=== PATIENT | male | born 1945 | race American Indian/Alaskan Native ===

== ENCOUNTER 2018-03-24 15:17 | Inpatient (IN) | payer MEDICARE, MEDICAID ==
[2018-03-24 15:21] VITALS: BMI 20.3
[2018-03-24] MEDS ORDERED: Piperacillin/Tazobact 3.375 gm 100 ML IV STA (15:39)
[2018-03-24 16:16] LABS: BASO # 0.1 K/uL (0.0-0.2); BASO % 0.7 % (0.0-2.0); EOS # 0.7 K/uL (0.0-0.7); EOS % 6.9 % (0.0-4.0); HEMOGLOBIN 13.5 g/dL (12.0-18.0); LYMPH # 3.5 K/uL (1.0-4.3); LYMPH % 33.3 % (20.0-40.0); MEAN CELL VOLUME 85.6 fL (80.0-94.0); MEAN CORPUSCULAR HEMOGLOBIN 28.9 pg (27.0-31.0); MEAN CORPUSCULAR HGB CONC 33.7 g/dL (33.0-37.0); MEAN PLATELET VOLUME 8.3 fL (7.2-11.7); MONO # 0.5 K/uL (0.0-0.8); MONO % 4.6 % (0.0-10.0); NEUT # 5.8 K/uL (1.8-7.0); NEUT % 54.5 % (50.0-75.0); NRBC % 0.3 % (0.0-2.0); RBC 4.68 Mil/uL (4.40-5.90); RED CELL DISTRIBUTION WIDTH 14.1 % (11.5-14.5); WHITE BLOOD COUNT 10.6 K/uL (4.8-10.8)
[2018-03-24 17:24] LABS: URINE BACTERIA FEW (<OCC); URINE BILIRUBIN NEGATIVE (NEGATIVE); URINE BLOOD 3+ (NEGATIVE); URINE CLARITY Hazy (Clear); URINE COLOR Yellow (YELLOW); URINE GLUCOSE (UA) NORMAL (Normal); URINE LEUKOCYTE ESTERASE 1+ Leu/uL (Negative); URINE PROTEIN NEGATIVE (NEGATIVE); URINE UROBILINOGEN NORMAL mg/dL (0.2-1.0)
[2018-03-24 17:33] LABS: CALCIUM 9.2 mg/dl (8.6-10.4); GFR AFRICAN-AMERICAN > 60; GFR NON-AFRICAN AMERICAN > 60
[2018-03-24 17:43] LABS: ALB/GLOB RATIO 0.9 (1.0-2.1); ALBUMIN 3.8 g/dL (3.5-5.0); ALT/SGPT 70 U/L (21-72); AST/SGOT 87 U/L (17-59); BLOOD UREA NITROGEN 13 mg/dL (9-20)
--- NOTE | 2018-03-24 19:22 | C.PDOC ---
History Of Present Illness 72 yo male sent in from [facility] for ESBL UTI. Pt states " Im always hungry." Otherwise has no complaints. Denies dysuria, abdominal pain, n/v, fever , or back pain. Pt is poor historian. Time Seen by Provider: 03/24/18 15:29 Chief Complaint (Nursing): Abnormal Labs History Per: Patient Past Medical History Vital Signs: Last Vital Signs Temp 98.4 F 03/24/18 18:28 Pulse 67 03/24/18 18:28 Resp 20 03/24/18 18:28 BP 157/93 H 03/24/18 18:28 Pulse Ox 99 03/24/18 18:28 - Medical History PMH: Parkinson's Disease, Seizures, TIA Denies: Chronic Kidney Disease Family History: States: Unknown Family Hx - Social History Hx Alcohol Use: No Hx Substance Use: No - Immunization History Hx Influenza Vaccination: Yes (08/14/17) Hx Pneumococcal Vaccination: Yes (08/31/13) Review Of Systems Review Of Systems: ROS cannot be obtained secondary to pt's inabilty to answer questions. Physical Exam - Physical Exam Appears: Non-toxic, No Acute Distress Skin: Warm, Dry Head: Atraumatic, Normacephalic Nose: Normal Oral Mucosa: Moist Neck: Normal, Normal ROM, Supple Chest: Symmetrical Cardiovascular: Rhythm Regular Respiratory: Normal Breath Sounds Gastrointestinal/Abdominal: Normal Exam, Soft, No Tenderness Back: Normal Inspection Extremity: Other (left contracture) Neurological/Psych: Other (a &o x 1) ED Course And Treatment - Laboratory Results Result Diagrams: 03/24/18 16:11 03/24/18 16:37 O2 Sat by Pulse Oximetry: 99 Progress Note: Case discussed with Dr patterson, agreed upon plan and admission. Requests Madhav consult. Disposition - Disposition Disposition: HOSPITALIZED Disposition Time: 18:00 Condition: STABLE - Clinical Impression Clinical Impression: Urinary tract infection due to ESBL Klebsiella
[2018-03-24] MEDS ORDERED: Magnesium Hydroxide Susp 30 ml UD PO PRN (23:23)
[2018-03-24] MEDS ORDERED: Piperacillin/Tazobact 3.375 GM in Sodium Chloride 100 ML IVPB SCH (23:30)
[2018-03-25] MEDS: Piperacill/Tazo 3.375gm in Dex 3.375 GM/50 ML BAG IVPB SCH ×4 (00:30→23:45)
--- NOTE | 2018-03-25 00:55 | CP.PCM.HP ---
History of Present Illness - History of Present Illness History of Present Illness: CC: abnormal labs HPI: History Of Present Illness 72 yo male sent in from [facility] for ESBL UTI. Pt states " Im always hungry." Otherwise has no complaints. Denies dysuria, abdominal pain, n/v, fever , or back pain. Pt is poor historian. Past Patient History - Past Medical History & Family History Past Medical History?: Yes - Past Social History Smoking Status: Unknown If Ever Smoked - CARDIAC Hx Cardiac Disorders: No - PULMONARY Hx Respiratory Disorders: No - NEUROLOGICAL Hx Parkinson's Disease: Yes Hx Seizures: Yes Hx Transient Ischemic Attacks (TIA): Yes - HEENT Hx HEENT Problems: Yes Other/Comment: poor vision - RENAL Hx Chronic Kidney Disease: No - ENDOCRINE/METABOLIC Hx Endocrine Disorders: Yes Hx Diabetes Mellitus Type 1: Yes ( PER [facility] CHART) - HEMATOLOGICAL/ONCOLOGICAL Hx Blood Disorders: No - INTEGUMENTARY Hx Dermatological Problems: No - MUSCULOSKELETAL/RHEUMATOLOGICAL Hx Musculoskeletal Disorders: Yes Hx Falls: Yes - GASTROINTESTINAL Hx Gastrointestinal Disorders: Yes Hx Constipation: Yes - GENITOURINARY/GYNECOLOGICAL Hx Genitourinary Disorders: Yes Hx Incontinence: Yes - PSYCHIATRIC Hx Substance Use: No - SURGICAL HISTORY Hx Surgeries: (UNKNOWN) - ANESTHESIA Hx Anesthesia: No (unknown) Hx Anesthesia Reactions: No Hx Malignant Hyperthermia: No Has any member of the family had a problem w/ anesthesia?: No Meds Allergies/Adverse Reactions: Allergies Allergy/AdvReac Type Severity Reaction Status Date / Time No Known Allergies Allergy Unverified 03/24/18 15:21 Results - Vital Signs Recent Vital Signs: Last Vital Signs Temp 98.4 F 03/24/18 18:28 Pulse 67 03/24/18 18:28 Resp 20 03/24/18 18:28 BP 157/93 H 03/24/18 18:28 Pulse Ox 99 03/24/18 19:26 - Labs Result Diagrams: 03/24/18 16:11 03/24/18 16:37 Labs: Laboratory Results - last 24 hr 03/24/18 03/24/18 03/24/18 16:11 16:37 17:11 WBC 10.6 RBC 4.68 Hgb 13.5 Hct 40.0 MCV 85.6 MCH 28.9 MCHC 33.7 RDW 14.1 Plt Count 394 MPV 8.3 Neut % (Auto) 54.5 Lymph % (Auto) 33.3 [place] % (Auto) 4.6 Eos % (Auto) 6.9 H Baso % (Auto) 0.7 Neut # (Auto) 5.8 Lymph # (Auto) 3.5 [place] # (Auto) 0.5 Eos # (Auto) 0.7 Baso # (Auto) 0.1 Sodium 141 Potassium 4.7 Chloride 102 Carbon Dioxide 29 Anion Gap 16 BUN 13 Creatinine 0.5 L Est GFR ( Amer) > 60 Est GFR (Non-Af Amer) > 60 Random Glucose 109 Calcium 9.2 Total Bilirubin 0.7 AST 87 H ALT 70 Alkaline Phosphatase 250 H Total Protein 7.9 Albumin 3.8 Globulin 4.1 H Albumin/Globulin Ratio 0.9 L Urine Color Yellow Urine Clarity Hazy Urine pH 6.0 Ur Specific [place] 1.023 Urine Protein Negative Urine Glucose (UA) Normal Urine Ketones Negative Urine Blood 3+ H Urine Nitrate Negative Urine Bilirubin Negative Urine Urobilinogen Normal Ur Leukocyte Esterase 1+ H Urine WBC (Auto) 4 Urine RBC (Auto) 352 H Urine Bacteria Few H Assessment & Plan (1) Urinary tract infection due to ESBL Klebsiella Status: Acute
[2018-03-25] MEDS: Enoxaparin 40 mg Syringe SC SCH (10:50)
[2018-03-25] MEDS: levETIRAcetam 100 mg/ml (5ml) Oral Syringe PO SCH ×2 (10:51→18:09)
[2018-03-25] MEDS: Pantoprazole 40 mg EC Tab PO SCH (10:51)
[2018-03-25] MEDS: Aspirin-Dipyridamole 200-25 mg ER Cap PO SCH ×2 (10:51→18:09)
[2018-03-25] MEDS: Fluticasone Nasal 50 mcg/Spray NS SCH ×3 (10:52→18:09)
[2018-03-25] MEDS: Dextrose 5%/0.45% NS 1,000 ML IV SCH (12:01)
--- NOTE | 2018-03-25 12:04 | CP.PCM.PN ---
Subjective - Date & Time of Evaluation Date of Evaluation: 03/25/18 Time of Evaluation: 12:03 - Subjective Subjective: Pt examined and chart reviewed recomendations to follow. Madhav Objective - Vital Signs/Intake and Output Vital Signs (last 24 hours): Temp Pulse Resp BP Pulse Ox 98.3 F 78 20 149/76 98 03/25/18 07:00 03/25/18 07:00 03/25/18 07:00 03/25/18 07:00 03/25/18 07:00 Intake and Output: 03/25/18 03/25/18 06:59 18:59 Intake Total 300 Balance 300 - Medications Medications: Current Medications Acetaminophen (Tylenol 325mg Tab) 650 mg PO Q4H PRN PRN Reason: Pain, Mild (1-3) Carbamazepine (Tegretol) 200 mg PO BID [facility] Last Admin: 03/25/18 10:51 Dose: 200 mg Dipyridamole/Aspirin (Aggrenox 25-200 Mg) 1 ea PO BID [facility] Last Admin: 03/25/18 10:51 Dose: 1 ea Docusate Sodium (Colace) 200 mg PO HS [facility] Donepezil HCl (Aricept) 10 mg PO HS [facility] Enoxaparin Sodium (Lovenox) 40 mg SC DAILY [facility] Last Admin: 03/25/18 10:50 Dose: 40 mg Fluticasone Propionate (Flonase) 1 spr NS BID [facility] Last Admin: 03/25/18 10:54 Dose: Not Given Piperacillin Sod/Tazobactam Sod (Zosyn 3.375 Gm Iv Premix) 3.375 gm in 50 mls @ 100 mls/hr IVPB Q8H [facility] Last Admin: 03/25/18 08:55 Dose: 100 mls/hr Dextrose/Sodium Chloride (Dextrose 5%/0.45% Ns 1000 Ml) 1,000 mls @ 60 mls/hr IV .[id number] [facility] Last Admin: 03/25/18 12:01 Dose: 60 mls/hr Levetiracetam (Keppra) 1,000 mg PO BID [facility] Last Admin: 03/25/18 10:51 Dose: 1,000 mg Magnesium Hydroxide (Milk Of Magnesia) 30 ml PO DAILY PRN PRN Reason: Constipation Pantoprazole Sodium (Protonix Ec Tab) 40 mg PO DAILY [facility] Last Admin: 03/25/18 10:51 Dose: 40 mg - Labs Labs: 03/24/18 16:11 03/24/18 16:37
--- NOTE | 2018-03-25 13:43 | CT ---
PROCEDURE: CT Abdomen and Pelvis without intravenous contrast HISTORY: Hematuria COMPARISON: None. TECHNIQUE: Without contrast.. Contrast Dose: 0 Radiation dose: Total exam DLP = Total exam DLP = 637.21 mGy-cm. This CT exam was performed using one or more of the following dose reduction techniques: Automated exposure control, adjustment of the mA and/or kV according to patient size, and/or use of iterative reconstruction technique. FINDINGS: LOWER THORAX: Trace bilateral pleural effusion. LIVER: Unremarkable. No gross lesion or ductal dilatation. GALLBLADDER AND BILE DUCTS: Cholelithiasis. No gross mural thickening or pericholecystic fluid. PANCREAS: Unremarkable. No gross lesion or ductal dilatation. SPLEEN: Unremarkable. ADRENALS: Unremarkable. No mass. KIDNEYS AND URETERS: Two small right renal cortical cysts, 12 mm and 13 mm, respectively. Nonobstructing 2 mm right upper pole renal calculus. No hydronephrosis. VASCULATURE: Unremarkable. No aortic aneurysm. BOWEL: Large amount of retained feces in the rectum. No mural thickening. No bowel obstruction. APPENDIX: Not identified. No secondary findings to suggest appendicitis. PERITONEUM: Unremarkable. No free fluid. No free air. LYMPH NODES: Unremarkable. No enlarged lymph nodes. BLADDER: Nondistended. Nevertheless, the bladder appears thick walled and the possibility of cystitis must be considered. REPRODUCTIVE: Unremarkable prostate. BONES: No acute fracture. There is extensive sclerosis about the left acetabulum, greater than expected in conjunction with osteoarthritis. Consider the possibility of a sclerotic metastasis. No other similar lesions are appreciated elsewhere. Recommend correlation with radionuclide bone scan. OTHER FINDINGS: None. IMPRESSION: Thick walled urinary bladder. Although the bladder is nondistended. This is thick enough to warrant correlation with laboratory evaluation in consideration of possible cystitis. Nonobstructing 2 mm right upper pole renal calculus. Two small right renal cortical cysts. Sclerotic lesion of left acetabulum/iliac bone. Consider correlation with radionuclide bone scan.
[2018-03-25 16:13] VITALS: RESP 20
--- NOTE | 2018-03-25 22:23 | CP.PCM.PN ---
Subjective - Date & Time of Evaluation Date of Evaluation: 03/25/18 Time of Evaluation: 17:35 - Subjective Subjective: Pt seen and examined at bedside Objective - Vital Signs/Intake and Output Vital Signs (last 24 hours): Temp Pulse Resp BP Pulse Ox 97.3 F L 76 20 153/65 H 97 03/25/18 16:00 03/25/18 16:00 03/25/18 16:00 03/25/18 16:00 03/25/18 16:00 Intake and Output: 03/25/18 03/26/18 18:59 06:59 Intake Total 270 Balance 270 - Medications Medications: Current Medications Acetaminophen (Tylenol 325mg Tab) 650 mg PO Q4H PRN PRN Reason: Pain, Mild (1-3) Carbamazepine (Tegretol) 200 mg PO BID [facility] Last Admin: 03/25/18 18:08 Dose: 200 mg Dipyridamole/Aspirin (Aggrenox 25-200 Mg) 1 ea PO BID [facility] Last Admin: 03/25/18 18:09 Dose: 1 ea Docusate Sodium (Colace) 200 mg PO [facility] Last Admin: 03/25/18 21:12 Dose: 200 mg Donepezil HCl (Aricept) 10 mg PO HS [facility] Last Admin: 03/25/18 21:12 Dose: 10 mg Enoxaparin Sodium (Lovenox) 40 mg SC DAILY [facility] Last Admin: 03/25/18 10:50 Dose: 40 mg Fluticasone Propionate (Flonase) 1 spr NS BID [facility] Last Admin: 03/25/18 18:09 Dose: 1 spray Piperacillin Sod/Tazobactam Sod (Zosyn 3.375 Gm Iv Premix) 3.375 gm in 50 mls @ 100 mls/hr IVPB Q8H [facility] Last Admin: 03/25/18 15:42 Dose: 100 mls/hr Dextrose/Sodium Chloride (Dextrose 5%/0.45% Ns 1000 Ml) 1,000 mls @ 60 mls/hr IV .[id number] [facility] Last Admin: 03/25/18 12:01 Dose: 60 mls/hr Levetiracetam (Keppra) 1,000 mg PO BID [facility] Last Admin: 03/25/18 18:09 Dose: 1,000 mg Magnesium Hydroxide (Milk Of Magnesia) 30 ml PO DAILY PRN PRN Reason: Constipation Pantoprazole Sodium (Protonix Ec Tab) 40 mg PO DAILY [facility] Last Admin: 03/25/18 10:51 Dose: 40 mg - Labs Labs: 03/24/18 16:11 03/24/18 16:37 Assessment and Plan (1) Urinary tract infection due to ESBL Klebsiella Status: Acute
[2018-03-26] MEDS: Dextrose 5%/0.45% NS 1,000 ML IV SCH (03:57)
[2018-03-26] MEDS: Piperacill/Tazo 3.375gm in Dex 3.375 GM/50 ML BAG IVPB SCH ×2 (08:25→16:15)
[2018-03-26] MEDS: Enoxaparin 40 mg Syringe SC SCH (09:08)
[2018-03-26] MEDS: Pantoprazole 40 mg EC Tab PO SCH (09:08)
[2018-03-26] MEDS: Fluticasone Nasal 50 mcg/Spray NS SCH ×2 (09:09→17:51)
[2018-03-26] MEDS: Aspirin-Dipyridamole 200-25 mg ER Cap PO SCH ×2 (09:09→17:47)
[2018-03-26] MEDS: levETIRAcetam 100 mg/ml (5ml) Oral Syringe PO SCH ×2 (09:09→17:47)
[2018-03-26 16:25] VITALS: BP 107/70; PULSE 67; TEMP 97.4; O2SAT 99
[2018-03-26 16:32] LABS: BASO # 0.1 K/uL (0.0-0.2); BASO % 1.1 % (0.0-2.0); EOS # 0.5 K/uL (0.0-0.7); EOS % 6.8 % (0.0-4.0); HEMOGLOBIN 12.6 g/dL (12.0-18.0); LYMPH # 2.4 K/uL (1.0-4.3); LYMPH % 30.1 % (20.0-40.0); MEAN CELL VOLUME 83.3 fL (80.0-94.0); MEAN CORPUSCULAR HGB CONC 34.8 g/dL (33.0-37.0); MONO # 0.6 K/uL (0.0-0.8); MONO % 6.8 % (0.0-10.0); NEUT # 4.5 K/uL (1.8-7.0); NEUT % 55.2 % (50.0-75.0); NRBC % 0.3 % (0.0-2.0); RBC 4.35 Mil/uL (4.40-5.90); RED CELL DISTRIBUTION WIDTH 14.4 % (11.5-14.5); WHITE BLOOD COUNT 8.1 K/uL (4.8-10.8)
--- NOTE | 2018-03-26 16:38 | CP.PCM.PN ---
Subjective - Date & Time of Evaluation Date of Evaluation: 03/26/18 Time of Evaluation: 11:00 Objective - Vital Signs/Intake and Output Vital Signs (last 24 hours): Temp Pulse Resp BP Pulse Ox 97.4 F L 67 20 107/70 99 03/26/18 16:09 03/26/18 16:09 03/26/18 16:09 03/26/18 16:09 03/26/18 16:09 Intake and Output: 03/26/18 03/26/18 06:59 18:59 Intake Total 1240 650 Balance 1240 650 - Medications Medications: Current Medications Acetaminophen (Tylenol 325mg Tab) 650 mg PO Q4H PRN PRN Reason: Pain, Mild (1-3) Carbamazepine (Tegretol) 200 mg PO BID [facility] Last Admin: 03/26/18 09:08 Dose: 200 mg Dipyridamole/Aspirin (Aggrenox 25-200 Mg) 1 ea PO BID [facility] Last Admin: 03/26/18 09:09 Dose: 1 ea Docusate Sodium (Colace) 200 mg PO HS [facility] Last Admin: 03/25/18 21:12 Dose: 200 mg Donepezil HCl (Aricept) 10 mg PO HS [facility] Last Admin: 03/25/18 21:12 Dose: 10 mg Enoxaparin Sodium (Lovenox) 40 mg SC DAILY [facility] Last Admin: 03/26/18 09:08 Dose: 40 mg Fluticasone Propionate (Flonase) 1 spr NS BID [facility] Last Admin: 03/26/18 09:09 Dose: 1 spray Piperacillin Sod/Tazobactam Sod (Zosyn 3.375 Gm Iv Premix) 3.375 gm in 50 mls @ 100 mls/hr IVPB Q8H [facility] Last Admin: 03/26/18 08:25 Dose: 100 mls/hr Dextrose/Sodium Chloride (Dextrose 5%/0.45% Ns 1000 Ml) 1,000 mls @ 60 mls/hr IV .[id number] [facility] Last Admin: 03/26/18 03:57 Dose: 60 mls/hr Levetiracetam (Keppra) 1,000 mg PO BID [facility] Last Admin: 03/26/18 09:09 Dose: 1,000 mg Magnesium Hydroxide (Milk Of Magnesia) 30 ml PO DAILY PRN PRN Reason: Constipation Pantoprazole Sodium (Protonix Ec Tab) 40 mg PO DAILY [facility] Last Admin: 03/26/18 09:08 Dose: 40 mg - Labs Labs: 03/24/18 16:11 03/24/18 16:37 Assessment and Plan - Assessment and Plan (Free Text) Assessment: Patient is seen and examined. confused, non verbal. No fever or change in mental status. Discussed with DR Arevalo, plan to transfer back to custodial today on augmenti 875mg bid in liquid form.
[2018-03-26 16:52] LABS: ALBUMIN 3.6 g/dL (3.5-5.0); ALT/SGPT 51 U/L (21-72); AST/SGOT 39 U/L (17-59); BLOOD UREA NITROGEN 9 mg/dL (9-20); GFR AFRICAN-AMERICAN > 60; GFR NON-AFRICAN AMERICAN > 60
== END 2018-03-26 18:00 | DRG 690 ==
LOC: C.ER 15:17 → C.9E 15:42 → C.5S 16:29
PROVIDERS: ADMIT Internal Medicine; ATTEND Internal Medicine
DX: N39.0 Urinary tract infection, site not specified (principal); E10.9 Type 1 diabetes mellitus without complications; B96.20 Unspecified Escherichia coli [E. coli] as the cause of diseases classified elsewhere; G20 Parkinson's disease; Z86.73 Personal history of transient ischemic attack (TIA), and cerebral infarction without residual deficits

== ENCOUNTER 2018-07-29 16:17 | Inpatient (IN) | payer MEDICARE, MEDICAID ==
[2018-07-29 16:17] VITALS: BMI 20.3
[2018-07-29] MEDS ORDERED: Sodium Chloride 0.9% 500 ML IV ONE ×2 (16:35→17:56)
--- NOTE | 2018-07-29 17:03 | C.PDOC ---
History Of Present Illness <Savi Barry P - Last Filed: 07/29/18 21:43> <Savi Marques J - Last Filed: 07/30/18 00:27> PGY-[address] Marques. Patient is a 73 year old male with PMHx of dementia, epilepsy, TIA, and DM type 1 who [facility] work (WBC 26.7, Na 155), lethargy and decreased PO intake. As per S personnel, patient suddenly stopped answering questions and following commands en route to [facility], however was awake and blinking eyes. Unable to obtain further history or ROS due to clinical status. (Savi Barry) <Savi Barry - Last Filed: 07/29/18 21:43> <Savi Marques J - Last Filed: 07/30/18 00:27> Time Seen by Provider: 07/29/18 16:34 Chief Complaint (Nursing): Weakness/Neurological Deficit Past Medical History - Medical History PMH: Parkinson's Disease, Seizures, TIA Denies: Chronic Kidney Disease Family History: States: Unknown Family Hx - Social History Hx Alcohol Use: No Hx Substance Use: No - Immunization History Hx Influenza Vaccination: Yes (08/14/17) Hx Pneumococcal Vaccination: Yes (08/31/13) <Savi Barry P - Last Filed: 07/29/18 21:43> Vital Signs: Last Vital Signs Temp 97.9 F 07/29/18 23:15 Pulse 77 07/29/18 23:15 Resp 20 07/29/18 23:15 BP 118/69 07/29/18 23:15 Pulse Ox 94 L 07/29/18 23:15 Review Of Systems Review Of Systems: ROS cannot be obtained secondary to pt's inabilty to answer questions. <Savi Barry - Last Filed: 07/29/18 21:43> Physical Exam - Physical Exam Appears: Chronically Ill, Other (thin, non-verbal, not following commands) Skin: Warm, Dry, Other (stage 2 ulcers to sacrum, L buttock and R buttock) Head: Atraumatic, Normacephalic Eye(s): bilateral: Normal Inspection, PERRL, EOMI Oral Mucosa: Dry Lips: Other (dry) Teeth: [place] Neck: Normal Chest: Symmetrical Cardiovascular: Rhythm Regular (Tachycardic), No Edema Respiratory: Other (clear anteriorly) Gastrointestinal/Abdominal: Soft, No Tenderness, No Distention, No Guarding, No Rebound Extremity: No Normal ROM, No Tenderness, No Pedal Edema, Other (contracted LUE and bilateral lower extremities) Pulses: Left Dorsalis Pedis: Normal, Right Dorsalis Pedis: Normal Neurological/Psych: Other (Patient lethargic, non-verbal, not following commands. Unable to perform full neurologic exam due to clinical status.) Pain Response: Withdraws With Pain <Savi Barry - Last Filed: 07/29/18 21:43> ED Course And Treatment - Laboratory Results Result Diagrams: 07/29/18 17:48 07/29/18 17:48 ECG: Interpreted By Me ECG Rhythm: Sinus Tachycardia - Radiology CXR: Viewed By Me, Read By Radiologist CXR Interpretation: Yes: No Acute Disease Reevaluation Time: 18:00 Reassessment Condition: Unchanged <Savi Barry - Last Filed: 07/29/18 21:43> - Laboratory Results Result Diagrams: 07/29/18 17:48 07/29/18 17:48 <Savi Marques - Last Filed: 07/30/18 00:27> Supervising Attending Note - Supervising Attending Note The Documented history was done by the: Physician Guest Relations Receptionist, Attending Physician The documented physical exam was done by the: Physician Guest Relations Receptionist, Attending Physician - Attestation: I have personally seen and examined this patient.: Yes I have fully participated in the care of the patient.: Yes I have reviewed all pertinent clinical information, including history, physical exam and plan: Yes <Savi Marques - Last Filed: 07/30/18 00:27> Critical Care Time - Critical Care Note Total Time (in mins): 30 Documented critical care: time excludes all time spent performing seperately billable procedures. <Savi Marques - Last Filed: 07/30/18 00:27> Medical Decision Making <Savi Barry - Last Filed: 07/29/18 21:43> <Savi Marques - Last Filed: 07/30/18 00:27> Medical Decision Making: Plan: -Labs: CBC, PT/INR, PTT, Mg, phospherous, lipase, Pro-BNP, Troponin, UA, ABG -blood culture -EKG -CXR -Head CT w/o contrast -IVF 18:45 Case discussed with PMD, Dr. Arevalo, who agrees with plan- IV hydration and broad spectrum antibiotics. Will accept admission. (Savi Barry) Disposition Discussed With : Owen Arevalo Doctor Will See Patient In The: Hospital - Disposition Disposition Time: 18:45 <Savi Barry - Last Filed: 07/29/18 21:43> <Savi Marques - Last Filed: 07/30/18 00:27> - Disposition Disposition: HOSPITALIZED Condition: STABLE - Clinical Impression Clinical Impression: Dehydration, Suspected UTI, Suspected soft tissue infection
--- NOTE | 2018-07-29 17:38 | CT ---
Date of service: 07/29/2018 PROCEDURE: CT HEAD WITHOUT CONTRAST. HISTORY: altered mental status COMPARISON: None available. TECHNIQUE: Axial computed tomography images were obtained through the head/brain without intravenous contrast. Radiation dose: Total exam DLP = 10 82.90 mGy-cm. This CT exam was performed using one or more of the following dose reduction techniques: Automated exposure control, adjustment of the mA and/or kV according to patient size, and/or use of iterative reconstruction technique. FINDINGS: HEMORRHAGE: No intracranial hemorrhage. BRAIN: Diffuse atrophy. No evidence of midline shift or mass effect. Dense intracranial atherosclerosis. Hypodense region involving the left on this consistent with remote infarction. Evidence of encephalomalacia particularly involving the right frontal and parietal lobes. Moderate periventricular and subcortical white matter hypodensities, which are nonspecific, but often seen with chronic microvascular ischemic disease. 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 CALVARIUM: Unremarkable. PARANASAL SINUSES: Unremarkable as visualized. No significant inflammatory changes. MASTOID AIR CELLS: Unremarkable as visualized. No inflammatory changes. OTHER FINDINGS: Bilateral nasal bone fractures. 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 Evidence of encephalomalacia particularly within the right frontal and parietal lobes. Moderate nonspecific white matter changes. Please note that MRI with diffusion imaging is more sensitive in the detection of acute ischemic event. Bilateral nasal bone fractures.
--- NOTE | 2018-07-29 17:48 | RAD ---
Date of service: 07/29/2018 PROCEDURE: CHEST RADIOGRAPH, 1 VIEW HISTORY: weakness COMPARISON: None available. FINDINGS: LUNGS: Clear. PLEURA: No pneumothorax or pleural fluid seen. CARDIOVASCULAR: No radiographic findings to suggest acute or significant cardiovascular disease. OSSEOUS STRUCTURES: No significant abnormalities. VISUALIZED UPPER ABDOMEN: Normal. OTHER FINDINGS: Elevated left hemidiaphragm. IMPRESSION: No active disease.
[2018-07-29 17:52] LABS: BASO # 0.1 K/uL (0.0-0.2); BASO % 0.4 % (0.0-2.0); EOS # 0.5 K/uL (0.0-0.7); HEMOGLOBIN 12.4 g/dL (12.0-18.0); LYMPH # 2.9 K/uL (1.0-4.3); MEAN CELL VOLUME 86.3 fL (80.0-94.0); MEAN CORPUSCULAR HEMOGLOBIN 29.3 pg (27.0-31.0); MEAN PLATELET VOLUME 9.1 fL (7.2-11.7); MONO # 1.2 K/uL (0.0-0.8); MONO % 5.1 % (0.0-10.0); NEUT # 19.6 K/uL (1.8-7.0); NEUT % 80.5 % (50.0-75.0); NRBC % 0.2 % (0.0-2.0); RBC 4.21 Mil/uL (4.40-5.90); RED CELL DISTRIBUTION WIDTH 13.8 % (11.5-14.5); WHITE BLOOD COUNT 24.3 K/uL (4.8-10.8)
[2018-07-29 18:00] LABS: INR 1.3
[2018-07-29 18:07] LABS: ALBUMIN 3.8 g/dL (3.5-5.0); BLOOD UREA NITROGEN 34 mg/dL (9-20); CALCIUM 10.3 mg/dl (8.6-10.4); GFR NON-AFRICAN AMERICAN > 60
[2018-07-29 18:08] LABS: ALB/GLOB RATIO 0.9 (1.0-2.1); LIPASE 31 U/L (23-300)
[2018-07-29 18:12] LABS: ABG ALLEN TEST POS; ARTERIAL BLOOD GAS HCO3 29.2 mmol/L (21-28); ARTERIAL BLOOD GAS O2 SAT 99.2 % (95-98); ARTERIAL BLOOD GAS PCO2 37 mm/Hg (35-45); ARTERIAL BLOOD GAS PO2 84 mm/Hg (80-100)
[2018-07-29 18:15] LABS: ALT/SGPT 58 U/L (21-72); AST/SGOT 60 U/L (17-59)
[2018-07-29 18:17] LABS: B-TYPE NATRIURETIC PEPTIDE 401 pg/mL (0-900)
[2018-07-29] MEDS ORDERED: Piperacillin/Tazobact 3.375 gm 100 ML IV STA (18:22)
[2018-07-29] MEDS ORDERED: Sodium Chloride 0.9% 1,000 ML IV SCH (22:15)
[2018-07-29] MEDS ORDERED: Piperacillin/Tazobact 3.375 GM in Sodium Chloride 100 ML IVPB SCH (22:15)
--- NOTE | 2018-07-29 22:41 | CP.PCM.HP ---
Past Patient History - Past Medical History & Family History Past Medical History?: Yes - Past Social History Smoking Status: Unknown If Ever Smoked - CARDIAC Hx Cardiac Disorders: No - PULMONARY Hx Respiratory Disorders: No - NEUROLOGICAL Hx Parkinson's Disease: Yes Hx Seizures: Yes Hx Transient Ischemic Attacks (TIA): Yes - HEENT Hx HEENT Problems: Yes Other/Comment: poor vision - RENAL Hx Chronic Kidney Disease: No - ENDOCRINE/METABOLIC Hx Endocrine Disorders: Yes Hx Diabetes Mellitus Type 1: Yes ( PER [facility] CHART) - HEMATOLOGICAL/ONCOLOGICAL Hx Blood Disorders: No - INTEGUMENTARY Hx Dermatological Problems: No - MUSCULOSKELETAL/RHEUMATOLOGICAL Hx Musculoskeletal Disorders: Yes Hx Falls: Yes - GASTROINTESTINAL Hx Gastrointestinal Disorders: Yes Hx Constipation: Yes - GENITOURINARY/GYNECOLOGICAL Hx Genitourinary Disorders: Yes Hx Incontinence: Yes - PSYCHIATRIC Hx Substance Use: No - SURGICAL HISTORY Hx Surgeries: (UNKNOWN) - ANESTHESIA Hx Anesthesia: No (unknown) Hx Anesthesia Reactions: No Hx Malignant Hyperthermia: No Meds Allergies/Adverse Reactions: Allergies Allergy/AdvReac Type Severity Reaction Status Date / Time No Known Allergies Allergy Unverified 07/29/18 16:31 Results - Vital Signs Recent Vital Signs: Last Vital Signs Temp 98.0 F 07/29/18 21:30 Pulse 106 H 07/29/18 21:30 Resp 20 07/29/18 21:30 BP 118/65 07/29/18 21:30 Pulse Ox 96 07/29/18 21:30 - Labs Result Diagrams: 07/29/18 17:48 07/29/18 17:48 Labs: Laboratory Results - last 24 hr 07/29/18 07/29/18 07/29/18 16:25 17:48 17:48 WBC 24.3 H D RBC 4.21 L Hgb 12.4 Hct 36.4 MCV 86.3 D MCH 29.3 MCHC 34.0 RDW 13.8 Plt Count 575 H D MPV 9.1 Neut % (Auto) 80.5 H Lymph % (Auto) 12.0 L [place] % (Auto) 5.1 Eos % (Auto) 2.0 Baso % (Auto) 0.4 Neut # (Auto) 19.6 H Lymph # (Auto) 2.9 [place] # (Auto) 1.2 H Eos # (Auto) 0.5 Baso # (Auto) 0.1 PT 14.0 H INR 1.3 APTT 37 H Puncture Site pCO2 pO2 HCO3 ABG pH ABG Total CO2 ABG O2 Saturation ABG Base Excess Hitesh Test ABG Potassium A-a O2 Difference Respiratory Index Glucose Lactate FiO2 Sodium Potassium Chloride Carbon Dioxide Anion Gap BUN Creatinine Est GFR ( Amer) Est GFR (Non-Af Amer) POC Glucose (mg/dL) 132 H Random Glucose Calcium Phosphorus Magnesium Total Bilirubin AST ALT Alkaline Phosphatase Troponin I NT-Pro-B Natriuret Pep Total Protein Albumin Globulin Albumin/Globulin Ratio Lipase Arterial Blood Potassium 07/29/18 07/29/18 17:48 18:00 WBC RBC Hgb Hct MCV MCH MCHC RDW Plt Count MPV Neut % (Auto) Lymph % (Auto) [place] % (Auto) Eos % (Auto) Baso % (Auto) Neut # (Auto) Lymph # (Auto) [place] # (Auto) Eos # (Auto) Baso # (Auto) PT INR APTT Puncture Site Rba pCO2 37 pO2 84 HCO3 29.2 H ABG pH 7.50 H ABG Total CO2 30.0 H ABG O2 Saturation 99.2 H ABG Base Excess 5.5 H Hitesh Test Pos ABG Potassium 3.4 L A-a O2 Difference 69.0 Respiratory Index 0.8 Glucose 141 H Lactate 1.6 FiO2 28.0 Sodium 155 H 153.0 H Potassium 5.1 Chloride 112 H 119.0 H Carbon Dioxide 30 Anion Gap 18 BUN 34 H Creatinine 0.8 Est GFR ( Amer) > 60 Est GFR (Non-Af Amer) > 60 POC Glucose (mg/dL) Random Glucose 139 H Calcium 10.3 Phosphorus 3.8 Magnesium 2.4 H Total Bilirubin 1.0 AST 60 H D ALT 58 Alkaline Phosphatase 269 H D Troponin I 0.0160 NT-Pro-B Natriuret Pep 401 Total Protein 7.9 Albumin 3.8 Globulin 4.1 H Albumin/Globulin Ratio 0.9 L Lipase 31 Arterial Blood Potassium 3.4 L
[2018-07-30] MEDS: Dextrose 5%/0.45% NS 1,000 ML IV SCH ×4 (00:12→18:30)
[2018-07-30] MEDS: Piperacill/Tazo 3.375gm in Dex 3.375 GM/50 ML BAG IVPB SCH ×4 (01:13→22:58)
[2018-07-30] MEDS: Vancomycin 1 gm/NS 200 ml 1 GM/200 ML BAG IVPB SCH ×2 (01:49→22:59)
--- NOTE | 2018-07-30 08:24 | HP ---
CHIEF COMPLAINT: Weakness. HISTORY OF PRESENT ILLNESS: This is a 73-year-old male, well known to me with history of seizure, a stroke with a left-sided hemiplegia. As a result of that, he is fully dependent on correction staff. He is bed bound and he is chronically sick, cachectic, and more recently he has a high PSA and he has been seen by Urology and workup was done. According to the correction staff, he had some labs done on the day of admission because of weakness, tiredness, lethargy, and poor oral intake. He was not talking as much as he was normally known to talk. He was weak. He was fatigued. The patient is a poor historian. He does not answer any questions. No further symptomatology is known at this point. PAST MEDICAL HISTORY: Seizure, CVA, left-sided weakness, and benign prostatic hyperplasia. SOCIAL HISTORY: Nonsmoker, non-ETOH user. CURRENT MEDICATIONS: In the correction are Keppra, Tylenol, lactulose, Flonase, Aricept, Colace, Aggrenox, omeprazole. PHYSICAL EXAMINATION: GENERAL: An elderly male, in no acute distress. Looks weak, tired, unkempt. VITAL SIGNS: BP 118/65, pulse 127, respiratory rate 22, temperature 98. SKIN: Dry, senile turgor. No bruises. No purpura. No petechiae. HEENT: Atraumatic, normocephalic. Negative pallor. Negative jaundice. Extraocular movements are intact. NECK: Supple, no JVD, no lymph node. CHEST: Chest wall bilateral symmetrical expansion. LUNGS: Bilaterally clear. No rales. No rhonchi. CVS: S1 and S2, regular. No heave, no thrill. ABDOMEN: Soft. Nontender. Bowel sounds are positive. RECTAL: Enlarged prostate. EXTREMITIES: No clubbing, cyanosis, or edema. [employer]IVE DIRECTOR: Awake, alert, and oriented x3. Cranial nerves II through XII are normal. Power 5/5 x4. Plantars are downgoing. ASSESSMENT: 1. Septicemia, most likely it is from urine, could be blood borne, could be pneumonia. 2. Cerebrovascular accident with left-sided hemiplegia. 3. Obstructive uropathy with high prostate specific antigen. 4. Dehydration. PLAN: Admit. Detailed orders written. Seen and examined. Owen Arevalo MD
[2018-07-30] MEDS: Enoxaparin 40 mg Syringe SC SCH (10:23)
[2018-07-30] MEDS: levETIRAcetam 100 mg/ml (5ml) Oral Syringe PO SCH ×2 (10:23→18:02)
[2018-07-30] MEDS: Aspirin-Dipyridamole 200-25 mg ER Cap PO SCH ×2 (10:23→18:01)
[2018-07-30] MEDS: Fluticasone Nasal 50 mcg/Spray NS SCH ×2 (10:31→18:01)
[2018-07-30 11:17] LABS: BASO # 0.1 K/uL (0.0-0.2); BASO % 0.4 % (0.0-2.0); EOS # 0.4 K/uL (0.0-0.7); LYMPH # 2.3 K/uL (1.0-4.3); LYMPH % 12.5 % (20.0-40.0); MEAN CORPUSCULAR HGB CONC 32.9 g/dL (33.0-37.0); MEAN PLATELET VOLUME 9.5 fL (7.2-11.7); MONO % 5.3 % (0.0-10.0); NEUT # 14.3 K/uL (1.8-7.0); NEUT % 79.8 % (50.0-75.0); NRBC % 0.1 % (0.0-2.0); RBC 3.14 Mil/uL (4.40-5.90); RED CELL DISTRIBUTION WIDTH 13.8 % (11.5-14.5); WHITE BLOOD COUNT 17.9 K/uL (4.8-10.8)
[2018-07-30 11:27] LABS: HEMOGLOBIN 9.1 g/dL (12.0-18.0)
[2018-07-30 11:30] LABS: URINE BACTERIA OCC (<OCC); URINE BILIRUBIN NEGATIVE (NEGATIVE); URINE BLOOD 3+ (NEGATIVE); URINE CLARITY Hazy (Clear); URINE COLOR Amber (YELLOW); URINE GLUCOSE (UA) NORMAL (Normal); URINE LEUKOCYTE ESTERASE 1+ Leu/uL (Negative); URINE PROTEIN NEGATIVE (NEGATIVE); URINE URIC ACID CRYSTALS MOD /hpf (<OCC)
[2018-07-30 12:16] LABS: ALB/GLOB RATIO 0.9 (1.0-2.1); ALBUMIN 2.9 g/dL (3.5-5.0); ALT/SGPT 42 U/L (21-72); AST/SGOT 53 U/L (17-59); BLOOD UREA NITROGEN 28 mg/dL (9-20); GFR NON-AFRICAN AMERICAN > 60
--- NOTE | 2018-07-30 12:53 | CARD ---
APPROVED REPORT Date of service: 07/29/2018 EKG Measurement Heart [id number] <Conclusion> Sinus tachycardia Possible Left atrial enlargement Nonspecific T wave abnormality Abnormal ECG
--- NOTE | 2018-07-30 17:30 | CP.PCM.PN ---
Subjective - Date & Time of Evaluation Date of Evaluation: 07/30/18 Time of Evaluation: 10:55 - Subjective Subjective: reason for consultation: elevated white count, congestion and possible pneumonia Patient is a 73 year old male with PMHx of dementia, epilepsy, TIA, and DM type 1 who was sent from longterm for abnormal lab work (WBC 26.7, Na 155), lethargy and decreased PO intake. patient congested with mild shortness of breath Objective - Vital Signs/Intake and Output Vital Signs (last 24 hours): Temp Pulse Resp BP Pulse Ox 99.1 F 101 H 20 97/61 L 94 L 07/30/18 15:00 07/30/18 15:00 07/30/18 15:00 07/30/18 15:00 07/30/18 15:00 Intake and Output: 07/30/18 07/30/18 06:59 18:59 Intake Total 860 1100 Output Total 200 300 Balance 660 800 - Medications Medications: Current Medications Acetaminophen (Tylenol 325mg Tab) 2 mg PO Q4H [facility] Last Admin: 07/30/18 02:41 Dose: Not Given Dipyridamole/Aspirin (Aggrenox 25-200 Mg) 1 ea PO BID [facility] Last Admin: 07/30/18 10:23 Dose: 1 ea Docusate Sodium (Colace) 200 mg PO HS [facility] Donepezil HCl (Aricept) 10 mg PO HS [facility] Last Admin: 07/30/18 01:10 Dose: 10 mg Enoxaparin Sodium (Lovenox) 40 mg SC DAILY [facility] Last Admin: 07/30/18 10:23 Dose: 40 mg Fluticasone Propionate (Flonase) 1 spr NS BID [facility] Last Admin: 07/30/18 10:31 Dose: 1 spr Vancomycin/Sodium Chloride (Vancomycin 1 Gm/Ns 200 Ml) 1 gm in 200 mls @ 133 mls/hr IVPB Q24H [facility] PRN Reason: Protocol Stop: 08/03/18 23:01 Last Admin: 07/30/18 01:49 Dose: 133 mls/hr Dextrose/Sodium Chloride (Dextrose 5%/0.45% Ns 1000 Ml) 1,000 mls @ 100 mls/hr IV .Q10H [facility] Last Admin: 07/30/18 12:37 Dose: 100 mls/hr Piperacillin Sod/Tazobactam Sod (Zosyn 3.375 Gm Iv Premix) 3.375 gm in 50 mls @ 100 mls/hr IVPB Q8H [facility] PRN Reason: Protocol Last Admin: 07/30/18 17:06 Dose: 100 mls/hr Levetiracetam (Keppra) 1,000 mg PO BID [facility] Last Admin: 07/30/18 10:23 Dose: 1,000 mg Sodium Phosphate (Fleet Enema) 133 ml RC DAILY PRN PRN Reason: Constipation - Labs Labs: 07/30/18 11:10 07/30/18 11:10 PT 14.0 SECONDS (9.7-12.2) H 07/29/18 17:48 INR 1.3 07/29/18 17:48 APTT 37 SECONDS (21-34) H 07/29/18 17:48 - Head Exam Head Exam: ATRAUMATIC, NORMOCEPHALIC - ENT Exam ENT Exam: Mucous Membranes Dry - Neck Exam Neck Exam: Normal Inspection - Respiratory Exam Respiratory Exam: Prolonged Expiratory Phase, Rales - Cardiovascular Exam Cardiovascular Exam: REGULAR RHYTHM - GI/Abdominal Exam GI & Abdominal Exam: Soft, Normal Bowel Sounds Assessment and Plan (1) Dyspnea Assessment & Plan: unlikely pneumonia Repeat chest x-ray in a.m. Continue IV fluids Urine for culture and sensitivity Hypernatremia secondary to dehydration Status: Acute (2) Dehydration Status: Acute (3) Suspected UTI Status: Acute
--- NOTE | 2018-07-30 22:41 | CP.PCM.PN ---
Objective - Vital Signs/Intake and Output Vital Signs (last 24 hours): Temp Pulse Resp BP Pulse Ox 99.1 F 101 H 20 97/61 L 94 L 07/30/18 15:00 07/30/18 15:00 07/30/18 15:00 07/30/18 15:00 07/30/18 15:00 Intake and Output: 07/30/1818 18:59 06:59 Intake Total 1100 Output Total 300 Balance 800 - Medications Medications: Current Medications Acetaminophen (Tylenol 325mg Tab) 2 mg PO Q4H [facility] Last Admin: 07/30/18 02:41 Dose: Not Given Dipyridamole/Aspirin (Aggrenox 25-200 Mg) 1 ea PO BID [facility] Last Admin: 07/30/18 18:01 Dose: 1 ea Docusate Sodium (Colace) 200 mg PO HS [facility] Donepezil HCl (Aricept) 10 mg PO HS [facility] Last Admin: 07/30/18 01:10 Dose: 10 mg Enoxaparin Sodium (Lovenox) 40 mg SC DAILY [facility] Last Admin: 07/30/18 10:23 Dose: 40 mg Fluticasone Propionate (Flonase) 1 spr NS BID [facility] Last Admin: 07/30/18 18:01 Dose: 1 spr Vancomycin/Sodium Chloride (Vancomycin 1 Gm/Ns 200 Ml) 1 gm in 200 mls @ 133 mls/hr IVPB Q24H [facility] PRN Reason: Protocol Stop: 08/03/18 23:01 Last Admin: 07/30/18 01:49 Dose: 133 mls/hr Dextrose/Sodium Chloride (Dextrose 5%/0.45% Ns 1000 Ml) 1,000 mls @ 100 mls/hr IV .Q10H [facility] Last Admin: 07/30/18 12:37 Dose: 100 mls/hr Piperacillin Sod/Tazobactam Sod (Zosyn 3.375 Gm Iv Premix) 3.375 gm in 50 mls @ 100 mls/hr IVPB Q8H [facility] PRN Reason: Protocol Last Admin: 07/30/18 17:06 Dose: 100 mls/hr Levetiracetam (Keppra) 1,000 mg PO BID [facility] Last Admin: 07/30/18 18:02 Dose: 1,000 mg Sodium Phosphate (Fleet Enema) 133 ml RC DAILY PRN PRN Reason: Constipation - Labs Labs: 07/30/18 11:10 07/30/18 11:10 PT 14.0 SECONDS (9.7-12.2) H 07/29/18 17:48 INR 1.3 07/29/18 17:48 APTT 37 SECONDS (21-34) H 07/29/18 17:48
[2018-07-31] MEDS: Dextrose 5%/0.45% NS 1,000 ML IV SCH ×2 (04:00→16:13)
[2018-07-31] MEDS: Piperacill/Tazo 3.375gm in Dex 3.375 GM/50 ML BAG IVPB SCH ×3 (06:35→22:47)
--- NOTE | 2018-07-31 08:10 | CP.PCM.PN ---
Subjective - Date & Time of Evaluation Date of Evaluation: 07/31/18 Time of Evaluation: 08:07 - Subjective Subjective: 73 YEAR OLD MALE WITH ELEVATED psa PT HAS BALL IN PLACE UNRESPONSIVE > A ELEVATED PSA. MOST LIKLEY DUE TO BALL sUGGEST PTS POOR MED CONDITION DOES NOT WARRENT EVAL AT THIS TIME. Yael Objective - Vital Signs/Intake and Output Vital Signs (last 24 hours): Temp Pulse Resp BP Pulse Ox 99.9 F H 94 H 20 98/54 L 98 07/31/18 00:00 07/31/18 04:10 07/30/18 23:15 07/30/18 23:15 07/30/18 23:15 Intake and Output: 07/31/18 07/31/18 06:59 18:59 Intake Total 2100 Output Total 400 Balance 1700 - Medications Medications: Current Medications Acetaminophen (Tylenol 325mg Tab) 2 mg PO Q4H [facility] Last Admin: 07/30/18 02:41 Dose: Not Given Dipyridamole/Aspirin (Aggrenox 25-200 Mg) 1 ea PO BID [facility] Last Admin: 07/30/18 18:01 Dose: 1 ea Docusate Sodium (Colace) 200 mg PO HS [facility] Last Admin: 07/30/18 22:57 Dose: 200 mg Donepezil HCl (Aricept) 10 mg PO HS [facility] Last Admin: 07/30/18 22:57 Dose: 10 mg Enoxaparin Sodium (Lovenox) 40 mg SC DAILY [facility] Last Admin: 07/30/18 10:23 Dose: 40 mg Fluticasone Propionate (Flonase) 1 spr NS BID [facility] Last Admin: 07/30/18 18:01 Dose: 1 spr Vancomycin/Sodium Chloride (Vancomycin 1 Gm/Ns 200 Ml) 1 gm in 200 mls @ 133 mls/hr IVPB Q24H [facility] PRN Reason: Protocol Stop: 08/03/18 23:01 Last Admin: 07/30/18 22:59 Dose: 133 mls/hr Dextrose/Sodium Chloride (Dextrose 5%/0.45% Ns 1000 Ml) 1,000 mls @ 100 mls/hr IV .Q10H [facility] Last Admin: 07/31/18 04:00 Dose: 100 mls/hr Piperacillin Sod/Tazobactam Sod (Zosyn 3.375 Gm Iv Premix) 3.375 gm in 50 mls @ 100 mls/hr IVPB Q8H [facility] PRN Reason: Protocol Last Admin: 07/31/18 06:35 Dose: 100 mls/hr Levetiracetam (Keppra) 1,000 mg PO BID [facility] Last Admin: 07/30/18 18:02 Dose: 1,000 mg Sodium Phosphate (Fleet Enema) 133 ml RC DAILY PRN PRN Reason: Constipation - Labs Labs: 07/30/18 11:10 07/30/18 11:10 PT 14.0 SECONDS (9.7-12.2) H 07/29/18 17:48 INR 1.3 07/29/18 17:48 APTT 37 SECONDS (21-34) H 07/29/18 17:48
[2018-07-31] MEDS: Fluticasone Nasal 50 mcg/Spray NS SCH ×2 (09:35→18:26)
[2018-07-31] MEDS: Enoxaparin 40 mg Syringe SC SCH (09:36)
[2018-07-31] MEDS: Aspirin-Dipyridamole 200-25 mg ER Cap PO SCH ×2 (09:36→18:25)
[2018-07-31] MEDS: levETIRAcetam 100 mg/ml (5ml) Oral Syringe PO SCH ×2 (09:36→18:29)
--- NOTE | 2018-07-31 10:10 | PN ---
DATE: 07/30/2018 SUBJECTIVE: The patient is afebrile. Decreased heart rate. Blood pressure has picked up. No fever. No chest pain. The patient is anxious. He is awake. PHYSICAL EXAMINATION: VITAL SIGNS: BP 97/61, pulse 101, respiratory rate 20, temperature 99.1. LUNGS: Clear. CARDIOVASCULAR SYSTEM: S1 and S2, regular. ABDOMEN: Soft. ASSESSMENT: 1. Septicemia with shock due to urinary tract infection. 2. Urinary tract infection. 3. Obstructive uropathy. 4. Seizure disorder. PLAN: Await cultures. Antibiotics. Urology will monitor the patient. Owen Arevalo MD
[2018-07-31 12:22] LABS: BLOOD UREA NITROGEN 21 mg/dL (9-20); CALCIUM 8.3 mg/dl (8.6-10.4); GFR NON-AFRICAN AMERICAN > 60
[2018-07-31 13:15] LABS: MEAN CORPUSCULAR HEMOGLOBIN 28.9 pg (27.0-31.0); MEAN CORPUSCULAR HGB CONC 33.6 g/dL (33.0-37.0); MEAN PLATELET VOLUME 9.3 fL (7.2-11.7); RBC 3.13 Mil/uL (4.40-5.90); RED CELL DISTRIBUTION WIDTH 13.8 % (11.5-14.5); WHITE BLOOD COUNT 15.4 K/uL (4.8-10.8)
[2018-07-31 13:33] LABS: BLOOD UREA NITROGEN 20 mg/dL (9-20); CALCIUM 8.6 mg/dl (8.6-10.4); GFR NON-AFRICAN AMERICAN > 60
[2018-07-31] MEDS ORDERED: Potassium Chloride 20 mEq/15 ml LIQ UD PO STA (22:33)
[2018-07-31] MEDS: Vancomycin 1 gm/NS 200 ml 1 GM/200 ML BAG IVPB SCH (22:47)
[2018-08-01] MEDS: Piperacill/Tazo 3.375gm in Dex 3.375 GM/50 ML BAG IVPB SCH ×3 (06:03→22:09)
[2018-08-01 07:42] LABS: MEAN CELL VOLUME 85.5 fL (80.0-94.0); MEAN CORPUSCULAR HEMOGLOBIN 28.6 pg (27.0-31.0); MEAN CORPUSCULAR HGB CONC 33.4 g/dL (33.0-37.0); RBC 2.82 Mil/uL (4.40-5.90); RED CELL DISTRIBUTION WIDTH 13.6 % (11.5-14.5)
[2018-08-01 08:00] LABS: BLOOD UREA NITROGEN 15 mg/dL (9-20); CALCIUM 8.4 mg/dl (8.6-10.4); GFR NON-AFRICAN AMERICAN > 60
[2018-08-01] MEDS ORDERED: Potassium Chloride 20 mEq/15 ml LIQ UD PO ONE (08:45)
[2018-08-01] MEDS: Enoxaparin 40 mg Syringe SC SCH (11:06)
[2018-08-01] MEDS: Aspirin-Dipyridamole 200-25 mg ER Cap PO SCH ×2 (11:07→17:34)
[2018-08-01] MEDS: Fluticasone Nasal 50 mcg/Spray NS SCH ×2 (11:07→17:34)
[2018-08-01] MEDS: levETIRAcetam 100 mg/ml (5ml) Oral Syringe PO SCH ×2 (11:07→17:34)
[2018-08-01] MEDS: Dextrose 5%/0.45% NS 1,000 ML IV SCH (19:30)
[2018-08-01] MEDS: Vancomycin 1 gm/NS 200 ml 1 GM/200 ML BAG IVPB SCH (22:12)
--- NOTE | 2018-08-01 22:30 | PN ---
DATE: 08/01/2018 SUBJECTIVE: The patient is afebrile, more alert, weak. PHYSICAL EXAMINATION: VITAL SIGNS: BP 94/58, pulse 90, respiratory rate 20, temperature 98.8. LUNGS: Clear. CVS: S1, S2, regular. ABDOMEN: Soft. ASSESSMENT: 1. Urinary tract infection with septicemia. 2. Dehydration. 3. Seizure disorder. 4. The patient has been seen by Urology, and the patient is not a candidate for any kind of intervention and we will treat conservatively. Owen Arevalo MD
--- NOTE | 2018-08-02 00:24 | CP.PCM.PN ---
Subjective - Date & Time of Evaluation Date of Evaluation: 08/01/18 - Subjective Subjective: MORE ALERT, NO FEVER, LESS WBC Objective - Vital Signs/Intake and Output Vital Signs (last 24 hours): Temp Pulse Resp BP Pulse Ox 99.7 F H 105 H 18 115/62 98 08/01/18 15:05 08/01/18 15:05 08/01/18 15:05 08/01/18 15:05 08/01/18 15:05 Intake and Output: 08/01/18 08/02/18 18:59 06:59 Intake Total 120 800 Output Total 175 100 Balance -55 700 - Medications Medications: Current Medications Acetaminophen (Tylenol 325mg Tab) 2 mg PO Q4H [facility] Last Admin: 07/30/18 02:41 Dose: Not Given Dipyridamole/Aspirin (Aggrenox 25-200 Mg) 1 ea PO BID [facility] Last Admin: 08/01/18 17:34 Dose: 1 ea Docusate Sodium (Colace) 200 mg PO HS [facility] Last Admin: 08/01/18 21:07 Dose: 200 mg Donepezil HCl (Aricept) 10 mg PO HS [facility] Last Admin: 08/01/18 21:07 Dose: 10 mg Enoxaparin Sodium (Lovenox) 40 mg SC DAILY [facility] Last Admin: 08/01/18 11:06 Dose: 40 mg Fluticasone Propionate (Flonase) 1 spr NS BID [facility] Last Admin: 08/01/18 17:34 Dose: 1 spr Vancomycin/Sodium Chloride (Vancomycin 1 Gm/Ns 200 Ml) 1 gm in 200 mls @ 133 mls/hr IVPB Q24H [facility] PRN Reason: Protocol Stop: 08/03/18 23:01 Last Admin: 08/01/18 22:12 Dose: 133 mls/hr Piperacillin Sod/Tazobactam Sod (Zosyn 3.375 Gm Iv Premix) 3.375 gm in 50 mls @ 100 mls/hr IVPB Q8H [facility] PRN Reason: Protocol Last Admin: 08/01/18 22:09 Dose: 100 mls/hr Levetiracetam (Keppra) 1,000 mg PO BID [facility] Last Admin: 08/01/18 17:34 Dose: 1,000 mg Sodium Phosphate (Fleet Enema) 133 ml RC DAILY PRN PRN Reason: Constipation - Labs Labs: 08/01/18 07:35 08/01/18 07:35 PT 14.0 SECONDS (9.7-12.2) H 07/29/18 17:48 INR 1.3 07/29/18 17:48 APTT 37 SECONDS (21-34) H 07/29/18 17:48 - Constitutional Appears: Non-toxic, No Acute Distress, Chronically Ill - Head Exam Head Exam: ATRAUMATIC, NORMAL INSPECTION, NORMOCEPHALIC - Eye Exam Eye Exam: EOMI, Normal appearance, PERRL Pupil Exam: NORMAL ACCOMODATION - ENT Exam ENT Exam: Mucous Membranes Moist, Normal Exam, Normal Oropharynx, TM's Normal Bilaterally - Neck Exam Neck Exam: Normal Inspection - Respiratory Exam Respiratory Exam: Clear to Ausculation Bilateral, NORMAL BREATHING PATTERN - Cardiovascular Exam Cardiovascular Exam: REGULAR RHYTHM, +S1, +S2 - GI/Abdominal Exam GI & Abdominal Exam: Normal Bowel Sounds - Rectal Exam Rectal Exam: NORMAL INSPECTION - Extremities Exam Extremities Exam: Normal Capillary Refill - Neurological Exam Neurological Exam: Abnormal Gait, Alert, Awake, CN II-XII Intact, Oriented x3 Neuro motor strength exam: Left Upper Extremity: 0, Right Upper Extremity: 5, Left Lower Extremity: 0, Right Lower Extremity: 5 - Psychiatric Exam Psychiatric exam: Flat Affect - Skin Skin Exam: Intact Assessment and Plan (1) Seizure Status: Chronic (2) BPH with obstruction/lower urinary tract symptoms Status: Chronic (3) Dehydration Status: Acute (4) Suspected UTI Status: Acute
[2018-08-02] MEDS: Piperacill/Tazo 3.375gm in Dex 3.375 GM/50 ML BAG IVPB SCH ×3 (06:14→22:10)
[2018-08-02 08:19] LABS: BASO # 0.1 K/uL (0.0-0.2); BASO % 0.5 % (0.0-2.0); EOS # 0.6 K/uL (0.0-0.7); EOS % 4.5 % (0.0-4.0); HEMOGLOBIN 8.5 g/dL (12.0-18.0); LYMPH % 14.3 % (20.0-40.0); MEAN CELL VOLUME 84.6 fL (80.0-94.0); MEAN CORPUSCULAR HEMOGLOBIN 28.6 pg (27.0-31.0); MEAN CORPUSCULAR HGB CONC 33.8 g/dL (33.0-37.0); MEAN PLATELET VOLUME 8.9 fL (7.2-11.7); MONO # 0.8 K/uL (0.0-0.8); MONO % 5.5 % (0.0-10.0); NEUT # 10.3 K/uL (1.8-7.0); NEUT % 75.2 % (50.0-75.0); RBC 2.97 Mil/uL (4.40-5.90); RED CELL DISTRIBUTION WIDTH 13.7 % (11.5-14.5); WHITE BLOOD COUNT 13.7 K/uL (4.8-10.8)
[2018-08-02 08:43] LABS: BLOOD UREA NITROGEN 10 mg/dL (9-20); CALCIUM 8.6 mg/dl (8.6-10.4); GFR NON-AFRICAN AMERICAN > 60
[2018-08-02] MEDS: levETIRAcetam 100 mg/ml (5ml) Oral Syringe PO SCH ×2 (09:39→17:28)
[2018-08-02] MEDS: Aspirin-Dipyridamole 200-25 mg ER Cap PO SCH ×2 (09:39→17:28)
[2018-08-02] MEDS: Fluticasone Nasal 50 mcg/Spray NS SCH ×2 (09:40→17:29)
[2018-08-02] MEDS: Enoxaparin 40 mg Syringe SC SCH (09:40)
--- NOTE | 2018-08-02 10:41 | CP.PCM.PN ---
Subjective - Date & Time of Evaluation Date of Evaluation: 08/02/18 Time of Evaluation: 08:20 - Subjective Subjective: the patient seen and examined Lying comfortably in no distress No cough or shortness of breath Continue antibiotics Followup if necessary Objective - Vital Signs/Intake and Output Vital Signs (last 24 hours): Temp Pulse Resp BP Pulse Ox 98.1 F 81 18 112/61 96 08/02/18 07:25 08/02/18 07:25 08/02/18 07:25 08/02/18 07:25 08/02/18 07:25 Intake and Output: 08/02/18 08/02/18 06:59 18:59 Intake Total 1650 Output Total 350 Balance 1300 - Medications Medications: Current Medications Acetaminophen (Tylenol 325mg Tab) 2 mg PO Q4H [facility] Last Admin: 07/30/18 02:41 Dose: Not Given Dipyridamole/Aspirin (Aggrenox 25-200 Mg) 1 ea PO BID [facility] Last Admin: 08/02/18 09:39 Dose: 1 ea Docusate Sodium (Colace) 200 mg PO HS [facility] Last Admin: 08/01/18 21:07 Dose: 200 mg Donepezil HCl (Aricept) 10 mg PO HS [facility] Last Admin: 08/01/18 21:07 Dose: 10 mg Enoxaparin Sodium (Lovenox) 40 mg SC DAILY [facility] Last Admin: 08/02/18 09:40 Dose: 40 mg Fluticasone Propionate (Flonase) 1 spr NS BID [facility] Last Admin: 08/02/18 09:40 Dose: 1 spr Vancomycin/Sodium Chloride (Vancomycin 1 Gm/Ns 200 Ml) 1 gm in 200 mls @ 133 mls/hr IVPB Q24H [facility] PRN Reason: Protocol Stop: 08/03/18 23:01 Last Admin: 08/01/18 22:12 Dose: 133 mls/hr Piperacillin Sod/Tazobactam Sod (Zosyn 3.375 Gm Iv Premix) 3.375 gm in 50 mls @ 100 mls/hr IVPB Q8H [facility] PRN Reason: Protocol Last Admin: 08/02/18 06:14 Dose: 100 mls/hr Levetiracetam (Keppra) 1,000 mg PO BID [facility] Last Admin: 08/02/18 09:39 Dose: 1,000 mg Sodium Phosphate (Fleet Enema) 133 ml RC DAILY [facility]N PRN Reason: Constipation - Labs Labs: 08/02/18 08:11 08/02/18 08:11 PT 14.0 SECONDS (9.7-12.2) H 07/29/18 17:48 INR 1.3 07/29/18 17:48 APTT 37 SECONDS (21-34) H 07/29/18 17:48 Assessment and Plan (1) Dyspnea Status: Acute (2) Dehydration Status: Acute (3) Suspected UTI Status: Acute
[2018-08-02] MEDS: Potassium Chloride 20 mEq/15 ml LIQ UD PO ONE ×2 (12:59→16:10)
[2018-08-02] MEDS ORDERED: Potassium Chloride 20 mEq/15 ml LIQ UD PO ONE (13:00)
--- NOTE | 2018-08-02 19:59 | CP.PCM.PN ---
Objective - Vital Signs/Intake and Output Vital Signs (last 24 hours): Temp Pulse Resp BP Pulse Ox 97.6 F 93 H 20 92/54 L 97 08/02/18 15:23 08/02/18 15:23 08/02/18 15:23 08/02/18 15:23 08/02/18 15:23 - Medications Medications: Current Medications Acetaminophen (Tylenol 325mg Tab) 2 mg PO Q4H [facility] Last Admin: 07/30/18 02:41 Dose: Not Given Dipyridamole/Aspirin (Aggrenox 25-200 Mg) 1 ea PO BID [facility] Last Admin: 08/02/18 17:28 Dose: 1 ea Docusate Sodium (Colace) 200 mg PO HS [facility] Last Admin: 08/01/18 21:07 Dose: 200 mg Donepezil HCl (Aricept) 10 mg PO HS [facility] Last Admin: 08/01/18 21:07 Dose: 10 mg Enoxaparin Sodium (Lovenox) 40 mg SC DAILY [facility] Last Admin: 08/02/18 09:40 Dose: 40 mg Fluticasone Propionate (Flonase) 1 spr NS BID [facility] Last Admin: 08/02/18 17:29 Dose: 1 spr Vancomycin/Sodium Chloride (Vancomycin 1 Gm/Ns 200 Ml) 1 gm in 200 mls @ 133 mls/hr IVPB Q24H [facility] PRN Reason: Protocol Stop: 08/03/18 23:01 Last Admin: 08/01/18 22:12 Dose: 133 mls/hr Piperacillin Sod/Tazobactam Sod (Zosyn 3.375 Gm Iv Premix) 3.375 gm in 50 mls @ 100 mls/hr IVPB Q8H [facility] PRN Reason: Protocol Last Admin: 08/02/18 14:42 Dose: 100 mls/hr Levetiracetam (Keppra) 1,000 mg PO BID [facility] Last Admin: 08/02/18 17:28 Dose: 1,000 mg Sodium Phosphate (Fleet Enema) 133 ml RC DAILY [facility] PRN Reason: Constipation - Labs Labs: 08/02/18 08:11 08/02/18 08:11 PT 14.0 SECONDS (9.7-12.2) H 07/29/18 17:48 INR 1.3 07/29/18 17:48 APTT 37 SECONDS (21-34) H 07/29/18 17:48 Assessment and Plan (1) Seizure Status: Chronic (2) BPH with obstruction/lower urinary tract symptoms Status: Chronic (3) Dehydration Status: Acute (4) Suspected UTI Status: Acute
[2018-08-02] MEDS: Vancomycin 1 gm/NS 200 ml 1 GM/200 ML BAG IVPB SCH (22:10)
--- NOTE | 2018-08-02 23:17 | PN ---
DATE: 08/02/2018 SUBJECTIVE: The patient is feeling better. He is afebrile. His sodium has gone down. His WBC has gone down. PHYSICAL EXAMINATION: VITAL SIGNS: BP 92/54, pulse 93, respiratory rate 20, and temperature 97.6. LUNGS: Clear. CARDIOVASCULAR SYSTEM: S1 and S2, regular. ABDOMEN: Soft. ASSESSMENT: 1. Urinary tract infection. 2. Obstructive uropathy and most likely malignant neoplasm. 3. Anemia. 4. Seizure disorder. PLAN: I discussed the case with the patient's daughter in terms of supportive care and the patient is not a candidate for any extensive surgery. The patient is for antibiotics and possible discharge if he is stable. Owen Arevalo MD
[2018-08-03] MEDS: Piperacill/Tazo 3.375gm in Dex 3.375 GM/50 ML BAG IVPB SCH ×3 (06:21→22:00)
[2018-08-03] MEDS: levETIRAcetam 100 mg/ml (5ml) Oral Syringe PO SCH ×2 (11:05→18:02)
[2018-08-03] MEDS: Enoxaparin 40 mg Syringe SC SCH (11:05)
[2018-08-03] MEDS: Aspirin-Dipyridamole 200-25 mg ER Cap PO SCH ×2 (11:05→18:02)
[2018-08-03] MEDS: Fluticasone Nasal 50 mcg/Spray NS SCH ×2 (11:05→18:02)
--- NOTE | 2018-08-03 13:43 | CP.PCM.PN ---
Subjective - Date & Time of Evaluation Date of Evaluation: 08/03/18 Time of Evaluation: 13:43 - Subjective Subjective: Pulmonary Follow up, Covering Dr Collins The patient was Seen/interviewed and examined by me at the bedside, Medical records reviewed and Management issues were discussed and formulated with the house staff. Events reviewed 73 year old male with PMHx of dementia, epilepsy, TIA, and DM type 1 Who was sent from residential for abnormal lab work (WBC 26.7, Na 155) and decreased PO intake. Initially lethargy, As per BLS personnel, patient suddenly stopped answering questions and following commands en route to [facility]. Patient more awake, comfortable, NAD Not communicative but no distress, no SOB Afebrile Objective - Vital Signs/Intake and Output Vital Signs (last 24 hours): Temp Pulse Resp BP Pulse Ox 99.1 F 95 H 18 93/62 L 96 08/03/18 07:00 08/03/18 07:00 08/03/18 07:00 08/03/18 07:00 08/03/18 07:00 Intake and Output: 08/03/18 08/03/18 06:59 18:59 Intake Total 850 Output Total 350 Balance 500 - Medications Medications: Current Medications Acetaminophen (Tylenol 325mg Tab) 2 mg PO Q4H [facility] Last Admin: 07/30/18 02:41 Dose: Not Given Dipyridamole/Aspirin (Aggrenox 25-200 Mg) 1 ea PO BID [facility] Last Admin: 08/03/18 11:05 Dose: 1 ea Docusate Sodium (Colace) 200 mg PO HS [facility] Last Admin: 08/02/18 21:38 Dose: 200 mg Donepezil HCl (Aricept) 10 mg PO HS [facility] Last Admin: 08/02/18 21:38 Dose: 10 mg Enoxaparin Sodium (Lovenox) 40 mg SC DAILY [facility] Last Admin: 08/03/18 11:05 Dose: 40 mg Fluticasone Propionate (Flonase) 1 spr NS BID [facility] Last Admin: 08/03/18 11:05 Dose: 1 spr Vancomycin/Sodium Chloride (Vancomycin 1 Gm/Ns 200 Ml) 1 gm in 200 mls @ 133 mls/hr IVPB Q24H [facility] PRN Reason: Protocol Stop: 08/03/18 23:01 Last Admin: 09/15/18 22:10 Dose: 133 mls/hr Piperacillin Sod/Tazobactam Sod (Zosyn 3.375 Gm Iv Premix) 3.375 gm in 50 mls @ 100 mls/hr IVPB Q8H [facility] PRN Reason: Protocol Last Admin: 08/03/18 06:21 Dose: 100 mls/hr Levetiracetam (Keppra) 1,000 mg PO BID [facility] Last Admin: 08/03/18 11:05 Dose: 1,000 mg Sodium Phosphate (Fleet Enema) 133 ml RC DAILY PRN PRN Reason: Constipation - Labs Labs: 08/02/18 08:11 08/02/18 08:11 PT 14.0 SECONDS (9.7-12.2) H 07/29/18 17:48 INR 1.3 07/29/18 17:48 APTT 37 SECONDS (21-34) H 07/29/18 17:48
[2018-08-03 18:05] VITALS: RESP 20
[2018-08-03] MEDS: Vancomycin 1 gm/NS 200 ml 1 GM/200 ML BAG IVPB SCH (22:13)
--- NOTE | 2018-08-03 23:07 | CP.PCM.PN ---
Subjective - Subjective Subjective: feels better, no distress, saud wbc Objective - Vital Signs/Intake and Output Vital Signs (last 24 hours): Temp Pulse Resp BP Pulse Ox 98.8 F 86 20 131/76 99 08/03/18 15:00 08/03/18 15:00 18 15:00 08/03/18 15:00 08/03/18 15:00 Intake and Output: 08/03/18 08/04/18 18:59 06:59 Intake Total 50 Output Total 200 Balance -150 - Medications Medications: Current Medications Acetaminophen (Tylenol 325mg Tab) 2 mg PO Q4H [facility] Last Admin: 07/30/18 02:41 Dose: Not Given Dipyridamole/Aspirin (Aggrenox 25-200 Mg) 1 ea PO BID [facility] Last Admin: 08/03/18 18:02 Dose: 1 ea Docusate Sodium (Colace) 200 mg PO HS [facility] Last Admin: 08/03/18 21:09 Dose: 200 mg Donepezil HCl (Aricept) 10 mg PO [facility] Last Admin: 08/03/18 21:09 Dose: 10 mg Enoxaparin Sodium (Lovenox) 40 mg SC DAILY [facility] Last Admin: 08/03/18 11:05 Dose: 40 mg Fluticasone Propionate (Flonase) 1 spr NS BID [facility] Last Admin: 08/03/18 18:02 Dose: 1 spr Piperacillin Sod/Tazobactam Sod (Zosyn 3.375 Gm Iv Premix) 3.375 gm in 50 mls @ 100 mls/hr IVPB Q8H [facility] PRN Reason: Protocol Last Admin: 08/03/18 22:00 Dose: 100 mls/hr Levetiracetam (Keppra) 1,000 mg PO BID [facility] Last Admin: 08/03/18 18:02 Dose: 1,000 mg Sodium Phosphate (Fleet Enema) 133 ml RC DAILY PRN PRN Reason: Constipation - Labs Labs: 08/02/18 08:11 08/02/18 08:11 PT 14.0 SECONDS (9.7-12.2) H 07/29/18 17:48 INR 1.3 07/29/18 17:48 APTT 37 SECONDS (21-34) H 07/29/18 17:48 - Constitutional Appears: Non-toxic, No Acute Distress - Head Exam Head Exam: ATRAUMATIC, NORMAL INSPECTION, NORMOCEPHALIC - Eye Exam Eye Exam: EOMI, Normal appearance, PERRL Pupil Exam: NORMAL ACCOMODATION - ENT Exam ENT Exam: Mucous Membranes Moist, Normal Exam, Normal Oropharynx, TM's Normal Bilaterally - Respiratory Exam Respiratory Exam: Clear to Ausculation Bilateral, NORMAL BREATHING PATTERN - Cardiovascular Exam Cardiovascular Exam: REGULAR RHYTHM, +S1, +S2 - GI/Abdominal Exam GI & Abdominal Exam: Soft, Normal Bowel Sounds - Rectal Exam Rectal Exam: NORMAL INSPECTION - Extremities Exam Extremities Exam: Full ROM, Normal Capillary Refill, Normal Inspection - Neurological Exam Neurological Exam: Abnormal Gait, Alert, Awake, CN II-XII Intact Neuro motor strength exam: Left Upper Extremity: 0, Right Upper Extremity: 5, Left Lower Extremity: 0, Right Lower Extremity: 5 - Psychiatric Exam Psychiatric exam: Normal Mood - Skin Skin Exam: Intact Assessment and Plan (1) Seizure Status: Chronic (2) BPH with obstruction/lower urinary tract symptoms Status: Chronic (3) Dehydration Status: Acute (4) Suspected UTI Status: Acute
[2018-08-04] MEDS: Piperacill/Tazo 3.375gm in Dex 3.375 GM/50 ML BAG IVPB SCH ×2 (06:31→15:33)
[2018-08-04 07:46] LABS: BASO # 0.1 K/uL (0.0-0.2); BASO % 0.5 % (0.0-2.0); EOS # 0.4 K/uL (0.0-0.7); EOS % 3.7 % (0.0-4.0); HEMOGLOBIN 8.1 g/dL (12.0-18.0); LYMPH # 1.5 K/uL (1.0-4.3); LYMPH % 13.8 % (20.0-40.0); MEAN CELL VOLUME 84.7 fL (80.0-94.0); MEAN CORPUSCULAR HEMOGLOBIN 28.7 pg (27.0-31.0); MEAN CORPUSCULAR HGB CONC 33.9 g/dL (33.0-37.0); MEAN PLATELET VOLUME 8.7 fL (7.2-11.7); MONO # 0.5 K/uL (0.0-0.8); MONO % 4.6 % (0.0-10.0); NEUT # 8.3 K/uL (1.8-7.0); NEUT % 77.4 % (50.0-75.0); RBC 2.83 Mil/uL (4.40-5.90); RED CELL DISTRIBUTION WIDTH 13.8 % (11.5-14.5); WHITE BLOOD COUNT 10.7 K/uL (4.8-10.8)
[2018-08-04 08:05] LABS: BLOOD UREA NITROGEN 9 mg/dL (9-20); CALCIUM 8.6 mg/dl (8.6-10.4); GFR NON-AFRICAN AMERICAN > 60
[2018-08-04] MEDS ORDERED: Potassium Chloride 20 mEq ER Tab PO ONE (09:44)
[2018-08-04] MEDS: Enoxaparin 40 mg Syringe SC SCH (10:44)
[2018-08-04] MEDS: Aspirin-Dipyridamole 200-25 mg ER Cap PO SCH ×2 (10:44→18:08)
[2018-08-04] MEDS: levETIRAcetam 100 mg/ml (5ml) Oral Syringe PO SCH ×2 (10:44→18:08)
[2018-08-04] MEDS: Fluticasone Nasal 50 mcg/Spray NS SCH ×2 (10:45→18:07)
--- NOTE | 2018-08-04 15:20 | CP.PCM.PN ---
Subjective - Date & Time of Evaluation Date of Evaluation: 08/04/18 Time of Evaluation: 15:14 - Subjective Subjective: PT CLEAR[place] FOR [place] [facility] [place] ESQUIVEL. K TODAY IS 2.8, HOWEVER IS WAS REPLACED THROUGH THE DAY. REPEAT BMP [place] BE D[place] [facility] [place]. SW TO ARRANGE TRANSPORTATION TO THE FACILITY FOR THIS AFTERNOON. SEE BELOW FOR D/C INSTRUCTIONS BEING SENT WITH PT. NO FURTHER ORDERS. -PLACE UNDER THE SERVICE OF DR. ESQUIVEL [place] [facility] [place]CALL UPON ARRIVAL FOR ADMITTING ORDERS AND BED ASSIGNMENT. -CONTINUE MEDICATIONS ACCORDING TO THE MED REC FORM---CHANGES CAN BE MADE BY DR. ESQUIVEL. -PLEASE CHECK BMP ON 08/05/18---NOTIFY DR. ESQUIVEL OF POTASSIUM RESULT. -FALL PRECAUTIONS PER FACILITY PROTOCOL. -FOR FURTHER ORDERS, CONTACT DR. ESQUIVEL'S OFFICE. Objective - Vital Signs/Intake and Output Vital Signs (last 24 hours): Temp Pulse Resp BP Pulse Ox 99 F 96 H 20 132/82 98 08/03/18 23:15 08/03/18 23:15 08/03/18 23:15 08/03/18 23:15 08/03/18 23:15 Intake and Output: 08/04/18 08/04/18 06:59 18:59 Intake Total 50 Output Total 500 Balance -450 - Medications Medications: Current Medications Acetaminophen (Tylenol 325mg Tab) 2 mg PO Q4H [facility] Last Admin: 07/30/18 02:41 Dose: Not Given Dipyridamole/Aspirin (Aggrenox 25-200 Mg) 1 ea PO BID [facility] Last Admin: 08/04/18 10:44 Dose: 1 ea Docusate Sodium (Colace) 200 mg PO HS [facility] Last Admin: 08/03/18 21:09 Dose: 200 mg Donepezil HCl (Aricept) 10 mg PO HS [facility] Last Admin: 08/03/18 21:09 Dose: 10 mg Enoxaparin Sodium (Lovenox) 40 mg SC DAILY [facility] Last Admin: 08/04/18 10:44 Dose: 40 mg Fluticasone Propionate (Flonase) 1 spr NS BID [facility] Last Admin: 08/04/18 10:45 Dose: 1 spr Piperacillin Sod/Tazobactam Sod (Zosyn 3.375 Gm Iv Premix) 3.375 gm in 50 mls @ 100 mls/hr IVPB Q8H [facility] PRN Reason: Protocol Last Admin: 08/04/18 06:31 Dose: 100 mls/hr Levetiracetam (Keppra) 1,000 mg PO BID [facility] Last Admin: 08/04/18 10:44 Dose: 1,000 mg Sodium Phosphate (Fleet Enema) 133 ml RC DAILY PRN PRN Reason: Constipation - Labs Labs: 08/04/18 07:37 08/04/18 07:37 PT 14.0 SECONDS (9.7-12.2) H 07/29/18 17:48 INR 1.3 07/29/18 17:48 APTT 37 SECONDS (21-34) H 07/29/18 17:48
[2018-08-04 16:53] VITALS: BP 121/71; PULSE 104; TEMP 99.7; O2SAT 96
--- NOTE | 2018-08-04 21:49 | CP.PCM.DIS ---
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 (3) Dehydration Status: Acute (4) Suspected UTI Status: Acute Hospital Course - Lab Results Lab Results: Micro Results 07/29/18 18:00 Blood Blood Culture - Final NO GROWTH AFTER 5 DAYS 07/29/18 18:00 Blood Gram Stain - Final TEST NOT PERFORMED 07/29/18 17:30 Blood S.aureus & Coag-Neg Staph PNA FISH - Final 07/29/18 17:30 Blood Blood Culture - Final Coagulase Neg Staphylococcus 07/29/18 17:30 Blood Gram Stain - Final 07/30/18 11:19 Urine Urine Culture - Final No Growth (<1,000 CFU/ML) Most Recent Lab Values WBC 10.7 K/uL (4.8-10.8) 08/04/18 07:37 RBC 2.83 Mil/uL (4.40-5.90) L 08/04/18 07:37 Hgb 8.1 g/dL (12.0-18.0) L 08/04/18 07:37 Hct 24.0 % (35.0-51.0) L 08/04/18 07:37 MCV 84.7 fL (80.0-94.0) 08/04/18 07:37 MCH 28.7 pg (27.0-31.0) 08/04/18 07:37 MCHC 33.9 g/dL (33.0-37.0) 08/04/18 07:37 RDW 13.8 % (11.5-14.5) 08/04/18 07:37 Plt Count 428 K/uL (130-400) H 08/04/18 07:37 MPV 8.7 fL (7.2-11.7) 08/04/18 07:37 Neut % (Auto) 77.4 % (50.0-75.0) H 08/04/18 07:37 Lymph % (Auto) 13.8 % (20.0-40.0) L 08/04/18 07:37 [place] % (Auto) 4.6 % (0.0-10.0) 08/04/18 07:37 Eos % (Auto) 3.7 % (0.0-4.0) 08/04/18 07:37 Baso % (Auto) 0.5 % (0.0-2.0) 08/04/18 07:37 Neut # (Auto) 8.3 K/uL (1.8-7.0) H 08/04/18 07:37 Lymph # (Auto) 1.5 K/uL (1.0-4.3) 08/04/18 07:37 [place] # (Auto) 0.5 K/uL (0.0-0.8) 08/04/18 07:37 Eos # (Auto) 0.4 K/uL (0.0-0.7) 08/04/18 07:37 Baso # (Auto) 0.1 K/uL (0.0-0.2) 08/04/18 07:37 PT 14.0 SECONDS (9.7-12.2) H 07/29/18 17:48 INR 1.3 07/29/18 17:48 APTT 37 SECONDS (21-34) H 07/29/18 17:48 Puncture Site Rba 07/29/18 18:00 pCO2 37 mm/Hg (35-45) 07/29/18 18:00 pO2 84 mm/Hg (80-100) 07/29/18 18:00 HCO3 29.2 mmol/L (21-28) H 07/29/18 18:00 ABG pH 7.50 (7.35-7.45) H 07/29/18 18:00 ABG Total CO2 30.0 mmol/L (22-28) H 07/29/18 18:00 ABG O2 Saturation 99.2 % (95-98) H 07/29/18 18:00 ABG Base Excess 5.5 mmol/L (-2.0-3.0) H 07/29/18 18:00 Hitesh Test Pos 07/29/18 18:00 ABG Potassium 3.4 mmol/L (3.6-5.2) L 07/29/18 18:00 A-a O2 Difference 69.0 mm/Hg 07/29/18 18:00 Respiratory Index 0.8 07/29/18 18:00 Sodium 153.0 mmol/l (132-148) H 07/29/18 18:00 Chloride 119.0 mmol/L (98-107) H 07/29/18 18:00 Glucose 141 mg/dl (75-110) H 07/29/18 18:00 Lactate 1.6 mmol/L (0.7-2.1) 07/29/18 18:00 FiO2 28.0 % 07/29/18 18:00 Sodium 144 mmol/L (132-148) 08/04/18 07:37 Potassium 2.8 mmol/L (3.6-5.2) L 08/04/18 07:37 Chloride 111 mmol/L (98-107) H 08/04/18 07:37 Carbon Dioxide 26 mmol/L (22-30) 08/04/18 07:37 Anion Gap 11 (10-20) 08/04/18 07:37 BUN 9 mg/dL (9-20) 08/04/18 07:37 Creatinine 0.7 mg/dL (0.8-1.5) L 08/04/18 07:37 Est GFR ( Amer) > 60 08/04/18 07:37 Est GFR (Non-Af Amer) > 60 08/04/18 07:37 POC Glucose (mg/dL) 132 mg/dL (65-110) H 07/29/18 16:25 Random Glucose 105 mg/dL (75-110) 08/04/18 07:37 Calcium 8.6 mg/dl (8.6-10.4) 08/04/18 07:37 Phosphorus 3.8 mg/dL (2.5-4.5) 07/29/18 17:48 Magnesium 2.4 mg/dL (1.6-2.3) H 07/29/18 17:48 Total Bilirubin 0.8 mg/dL (0.2-1.3) 07/30/18 11:10 AST 53 U/L (17-59) 07/30/18 11:10 ALT 42 U/L (21-72) 07/30/18 11:10 Alkaline Phosphatase 192 U/L (38-126) H D 07/30/18 11:10 Troponin I 0.0160 ng/mL (0.00-0.120) 07/29/18 17:48 NT-Pro-B Natriuret Pep 401 pg/mL (0-900) 07/29/18 17:48 Total Protein 5.9 g/dL (6.3-8.3) L 07/30/18 11:10 Albumin 2.9 g/dL (3.5-5.0) L D 07/30/18 11:10 Globulin 3.1 gm/dL (2.2-3.9) 07/30/18 11:10 Albumin/Globulin Ratio 0.9 (1.0-2.1) L 07/30/18 11:10 Lipase 31 U/L (23-300) 07/29/18 17:48 Arterial Blood Potassium 3.4 mmol/L (3.6-5.2) L 07/29/18 18:00 Urine Color Judith (YELLOW) 07/30/18 11:19 Urine Clarity Hazy (Clear) 07/30/18 11:19 Urine pH 5.0 (5.0-8.0) 07/30/18 11:19 Ur Specific [place] 1.021 (1.003-1.030) 07/30/18 11:19 Urine Protein Negative mg/dL (NEGATIVE) 07/30/18 11:19 Urine Glucose (UA) Normal mg/dL (Normal) 07/30/18 11:19 Urine Ketones Negative mg/dL (NEGATIVE) 07/30/18 11:19 Urine Blood 3+ (NEGATIVE) H 07/30/18 11:19 Urine Nitrate Negative (NEGATIVE) 07/30/18 11:19 Urine Bilirubin Negative (NEGATIVE) 07/30/18 11:19 Urine Urobilinogen 4.0 mg/dL (0.2-1.0) 07/30/18 11:19 Ur Leukocyte Esterase 1+ Hannah/uL (Negative) H 07/30/18 11:19 Urine WBC (Auto) 11 /hpf (0-5) H 07/30/18 11:19 Urine RBC (Auto) 43 /hpf (0-3) H 07/30/18 11:19 Uric Acid Crystals Mod /hpf (<OCC) H 07/30/18 11:19 Urine Bacteria Occ (<OCC) H 07/30/18 11:19 Blood Type O POSITIVE 07/31/18 13:07 Antibody Screen Negative 07/31/18 13:07 Discharge Exam - Head Exam Head Exam: ATRAUMATIC, NORMAL INSPECTION, NORMOCEPHALIC Discharge Plan - Follow Up Plan Condition: STABLE Disposition: [facility] Instructions: Dehydration, Adult (DC), Urinary Tract Infection, Adult (DC), Seizures, Adult (DC), Altered Mental Status (DC) Additional Instructions: -PL[place] UND[place] THE SERVICE OF DR. AREVALO [place] [facility] [place] UPON ARRIVAL FOR ADMITTING ORDERS AND BED ASSIGNMENT. -CONTINUE MEDICATIONS ACCORDING TO THE MED REC FORM---CHANGES CAN BE MADE BY DR. AREVALO. -PLEASE CHECK BMP ON 08/05/18---NOTIFY DR. AREVALO OF POTASSIUM RESULT. -FALL PRECAUTIONS PER FACILITY PROTOCOL. -FOR FURTHER ORDERS, CONTACT DR. AREVALO'S OFFICE. Referrals: Charanjit Collins MD [Staff Provider] - Lawrence Corey Jr., MD [Staff Provider] - Owen Arevalo MD [Staff Provider] -
--- NOTE | 2018-08-05 07:44 | DS ---
DISCHARGE DIAGNOSES: 1. Urinary tract infection. 2. Obstructive uropathy. 3. Dehydration. 4. Hypertension. HISTORY: This is a 73-year-old male with history of severe seizure disorder, left-sided hemiplegia, who jail, being cared for. Meanwhile, there, he developed fever, chills, rigors, elevated WBC count. Urinalysis was positive, and the patient was brought to emergency room and hospitalized. The patient was admitted, started on antibiotics. Cultures did not grow and one blood culture was positive for coag-negative Staph, but it was contaminant. The patient was treated with antibiotic, Zosyn, and he feels better. He is afebrile. PHYSICAL EXAMINATION: VITAL SIGNS: Blood pressure 121/71, pulse 104, respiratory rate 20, and temperature 99.7. LUNGS: Clear. CARDIOVASCULAR SYSTEM: S1 and S2, regular. ABDOMENS: Soft. ASSESSMENT: 1. Urinary tract infection, rule out septicemia. 2. Seizure disorder. 3. Cerebral atherosclerosis. 4. Dehydration. PLAN: Admit. Detailed orders written. Seen and examined. Owen Arevalo MD
== END 2018-08-04 20:19 | DRG 871 ==
LOC: C.ER 16:17 → C.9E 18:23 → C.6T 20:03
PROVIDERS: ADMIT Internal Medicine; ATTEND Internal Medicine
DX: A41.9 Sepsis, unspecified organism (principal); R65.21 Severe sepsis with septic shock; N39.0 Urinary tract infection, site not specified; E87.0 Hyperosmolality and hypernatremia; I69.354 Hemiplegia and hemiparesis following cerebral infarction affecting left non-dominant side; N13.8 Other obstructive and reflux uropathy; I10 Essential (primary) hypertension; I67.2 Cerebral atherosclerosis; E86.0 Dehydration; N40.1 Benign prostatic hyperplasia with lower urinary tract symptoms; G20 Parkinson's disease; F02.80 Dementia in other diseases classified elsewhere, unspecified severity, without behavioral disturbance, psychotic disturbance, mood disturbance, and anxiety; E10.9 Type 1 diabetes mellitus without complications; R97.20 Elevated prostate specific antigen [PSA]; R06.00 Dyspnea, unspecified; G40.909 Epilepsy, unspecified, not intractable, without status epilepticus; D64.9 Anemia, unspecified; H54.7 Unspecified visual loss; Z79.4 Long term (current) use of insulin

== ENCOUNTER 2018-08-20 13:01 | Inpatient (IN) | payer MEDICARE, MEDICAID ==
[2018-08-20 13:01] VITALS: BMI 20.3
[2018-08-20] MEDS ORDERED: Sodium Chloride 0.9% 1,000 ML IV SCH (14:15)
[2018-08-20] MEDS ORDERED: ACETAMINOPHEN PO SCH (14:15)
[2018-08-20 14:20] LABS: BASO # 0.1 K/uL (0.0-0.2); BASO % 0.4 % (0.0-2.0); EOS # 0.3 K/uL (0.0-0.7); EOS % 2.2 % (0.0-4.0); HEMOGLOBIN 8.7 g/dL (12.0-18.0); LYMPH # 2.6 K/uL (1.0-4.3); LYMPH % 16.3 % (20.0-40.0); MEAN CELL VOLUME 84.6 fL (80.0-94.0); MEAN CORPUSCULAR HEMOGLOBIN 27.4 pg (27.0-31.0); MEAN CORPUSCULAR HGB CONC 32.3 g/dL (33.0-37.0); MEAN PLATELET VOLUME 8.5 fL (7.2-11.7); MONO # 0.7 K/uL (0.0-0.8); MONO % 4.1 % (0.0-10.0); NEUT # 12.3 K/uL (1.8-7.0); RBC 3.17 Mil/uL (4.40-5.90); RED CELL DISTRIBUTION WIDTH 15.2 % (11.5-14.5)
[2018-08-20 14:28] LABS: INR 1.4; PROTHROMBIN TIME 15.5 SECONDS (9.7-12.2)
[2018-08-20 14:28] LABS: VENOUS BLOOD GAS BASE EXCESS 0.8 mmol/L (0.0-2.0); VENOUS BLOOD GAS PCO2 39 mmHg (40-60); VENOUS BLOOD GAS PO2 22 mm/Hg (30-55); VENOUS BLOOD PH 7.42 (7.32-7.43)
--- NOTE | 2018-08-20 14:33 | RAD ---
Date of service: 08/20/2018 HISTORY: Sepsis Patient COMPARISON: 07/29/2018 FINDINGS: LUNGS: Evaluation limited due to obscuring of the lung apices by the patient's mandible. No definite infiltrate. Lower left bowen thorax also obscured by patient's hand. PLEURA: No significant pleural effusion identified, no pneumothorax apparent. CARDIOVASCULAR: Normal. OSSEOUS STRUCTURES: No significant abnormalities. VISUALIZED UPPER ABDOMEN: Normal. OTHER FINDINGS: None. IMPRESSION: Normal limited examination.
[2018-08-20 15:07] LABS: ALB/GLOB RATIO 0.7 (1.0-2.1); ALBUMIN 2.6 g/dL (3.5-5.0); ALT/SGPT 26 U/L (21-72); AST/SGOT 27 U/L (17-59); BLOOD UREA NITROGEN 19 mg/dL (9-20); CALCIUM 8.4 mg/dl (8.6-10.4); GFR NON-AFRICAN AMERICAN > 60
[2018-08-20] MEDS ORDERED: Lactated Ringer's 1,000 ML IV ONE (15:09)
--- NOTE | 2018-08-20 15:11 | C.PDOC ---
History Of Present Illness 73-year-old male, is sent to the emergency department from [facility] [place] for fever 101 axillary this morning. Patient receiving Zosyn through PICC line for recent UTI. Today patient also has been not eating or drinking well. he has a baseline confusion but is alert. Patient had a CXR that showed right lower lobe infiltrates at the jail. All other Hx limited. Time Seen by Provider: 08/20/18 13:50 Chief Complaint (Nursing): Fever History Per: EMS History/Exam Limitations: clinical condition Past Medical History Reviewed: Historical Data, Nursing Documentation, Vital Signs Vital Signs: Last Vital Signs Temp 98.5 F 08/20/18 13:34 Pulse 92 H 08/20/18 13:34 Resp 20 08/20/18 13:34 BP 136/69 08/20/18 13:34 Pulse Ox 98 08/20/18 13:34 - Medical History PMH: Parkinson's Disease, Seizures, TIA Denies: Chronic Kidney Disease Family History: States: No Known Family Hx - Social History Hx Alcohol Use: No Hx Substance Use: No - Immunization History Hx Influenza Vaccination: Yes (08/14/17) Hx Pneumococcal Vaccination: Yes (08/31/13) Review Of Systems Review Of Systems: ROS cannot be obtained secondary to pt's inabilty to answer questions. Physical Exam - Physical Exam Appears: Non-toxic, No Acute Distress Skin: Warm, Dry, Other (stage 3 sacral decubitis ulcer) Head: Atraumatic, Normacephalic Eye(s): bilateral: Normal Inspection Nose: Normal Oral Mucosa: Moist Neck: Normal ROM Chest: Symmetrical Cardiovascular: Rhythm Regular, No Murmur Respiratory: Decreased Breath Sounds (diminished breath sounds from shallow inspiration), No Accessory Muscle Use Gastrointestinal/Abdominal: Soft, No Tenderness Extremity: Normal ROM, No Deformity ED Course And Treatment - Laboratory Results Result Diagrams: 08/20/18 14:16 08/20/18 14:16 Lab Interpretation: Abnormal (WBC 16.0, Hgb 8.7, Hct 26.8, Na 158, Cl 120, K+2.5 Lactate 1.2) ECG: Interpreted By Me ECG Rhythm: Sinus Rhythm, ST/T Changes (nonspecific) O2 Sat by Pulse Oximetry: 98 Pulse Ox Interpretation: Normal (RA) - Radiology CXR: Viewed By Me, Read By Radiologist CXR Interpretation: Yes: Infiltrates (LLL) Reevaluation Time: 16:49 Reassessment Condition: Unchanged - Physician Consult Information Time Consulting Physician Contacted: 16:49 Physician Contacted: Owen Arevalo Outcome Of Conversation: Patient to be admitted for pneumonia Medical Decision Making Medical Decision Making: Plan: * Bloodwork * EKG * Chest X-Ray * UA * Reassess and Disposition Disposition - Disposition Disposition: HOSPITALIZED Disposition Time: 16:50 Condition: FAIR - POA Present On Arrival: None - Clinical Impression Clinical Impression: Fever, Hypernatremia, Hypokalemia, Pneumonia - Scribe Statement The provider has reviewed the documentation as recorded by the Scribe (Radha Sauer) Provider Attestation: All medical record entries made by the Scribe were at my direction and personally dictated by me. I have reviewed the chart and agree that the record accurately reflects my personal performance of the history, physical exam, medical decision making, and the department course for this patient. I have also personally directed, reviewed, and agree with the discharge instructions and disposition.
[2018-08-20] MEDS ORDERED: Potassium Chloride 20 mEq 100 ML ONE (15:28)
[2018-08-20] MEDS ORDERED: Lactated Ringer's 1,000 ML ONE (15:28)
--- NOTE | 2018-08-20 15:33 | RAD ---
Date of service: 08/20/2018 HISTORY: repeat COMPARISON: 08/20/2018 at 2:17 p.m. FINDINGS: LUNGS: Patchy opacity at left base. Possible early pneumonia. Follow-up advised. No other abnormal opacity elsewhere. PLEURA: No pleural effusion or pneumothorax. Minimal nonspecific elevation of left hemidiaphragm. CARDIOVASCULAR: Normal. OSSEOUS STRUCTURES: No significant abnormalities. VISUALIZED UPPER ABDOMEN: Normal. OTHER FINDINGS: None. IMPRESSION: Patchy opacity at left lung base. Rule out pneumonia. Follow-up advised.
[2018-08-20] MEDS ORDERED: Vancomycin 1 gm/NS 200 ml 1 GM/200 ML BAG IVPB STA (16:52)
[2018-08-20 16:59] LABS: SQUAMOUS EPITHIAL < 1 /hpf (0-5); URINE BACTERIA OCC (<OCC); URINE BILIRUBIN NEGATIVE (NEGATIVE); URINE BLOOD 3+ (NEGATIVE); URINE CALCIUM OXALATE CRYSTALS MOD /hpf (<OCC); URINE CLARITY Hazy (Clear); URINE COLOR YELLOW (YELLOW); URINE GLUCOSE (UA) NORMAL (Normal); URINE LEUKOCYTE ESTERASE 3+ Leu/uL (Negative); URINE PROTEIN 2+ mg/dL (NEGATIVE); URINE UROBILINOGEN NORMAL mg/dL (0.2-1.0)
[2018-08-20] MEDS: Cefepime IV 1 gm in Dextrose 1 GM/50 ML BAG IVPB SCH (17:57)
[2018-08-20 18:03] LABS: VENOUS BLOOD GAS BASE EXCESS 0.1 mmol/L (0.0-2.0); VENOUS BLOOD GAS PCO2 34 mmHg (40-60); VENOUS BLOOD GAS PO2 26 mm/Hg (30-55); VENOUS BLOOD PH 7.45 (7.32-7.43)
[2018-08-20] MEDS: Aspirin-Dipyridamole 200-25 mg ER Cap PO SCH (18:30)
[2018-08-20] MEDS: levETIRAcetam 100 mg/ml (5ml) Oral Syringe PO SCH (18:30)
[2018-08-20] MEDS: Dextrose 5%/0.45% NS 1,000 ML IV SCH (20:40)
--- NOTE | 2018-08-20 22:20 | CP.PCM.HP ---
Past Patient History - Past Medical History & Family History Past Medical History?: Yes - Past Social History Smoking Status: Unknown If Ever Smoked - CARDIAC Hx Cardiac Disorders: No - PULMONARY Hx Respiratory Disorders: No - NEUROLOGICAL Hx Parkinson's Disease: Yes Hx Seizures: Yes Hx Transient Ischemic Attacks (TIA): Yes - HEENT Hx HEENT Problems: Yes Other/Comment: poor vision - RENAL Hx Chronic Kidney Disease: No - ENDOCRINE/METABOLIC Hx Endocrine Disorders: Yes - HEMATOLOGICAL/ONCOLOGICAL Hx Blood Disorders: No - INTEGUMENTARY Hx Dermatological Problems: No - MUSCULOSKELETAL/RHEUMATOLOGICAL Hx Musculoskeletal Disorders: Yes Hx Falls: Yes - GASTROINTESTINAL Hx Gastrointestinal Disorders: Yes Hx Constipation: Yes - GENITOURINARY/GYNECOLOGICAL Hx Genitourinary Disorders: Yes Hx Incontinence: Yes - PSYCHIATRIC Hx Substance Use: No - SURGICAL HISTORY Hx Surgeries: (UNKNOWN) - ANESTHESIA Hx Anesthesia: No (unknown) Hx Anesthesia Reactions: No Hx Malignant Hyperthermia: No Meds Allergies/Adverse Reactions: Allergies Allergy/AdvReac Type Severity Reaction Status Date / Time No Known Allergies Allergy Unverified 07/29/18 16:31 Results - Vital Signs Recent Vital Signs: Last Vital Signs Temp 98.5 F 08/20/18 18:48 Pulse 94 H 08/20/18 18:48 Resp 15 08/20/18 18:48 BP 133/72 08/20/18 18:48 Pulse Ox 100 08/20/18 18:48 - Labs Result Diagrams: 08/20/18 14:16 08/20/18 14:16 Labs: Laboratory Results - last 24 hr 08/20/18 08/20/18 08/20/18 14:16 14:16 14:16 WBC 16.0 H RBC 3.17 L Hgb 8.7 L Hct 26.8 L MCV 84.6 MCH 27.4 MCHC 32.3 L RDW 15.2 H Plt Count 283 D MPV 8.5 Neut % (Auto) 77.0 H Lymph % (Auto) 16.3 L [place] % (Auto) 4.1 Eos % (Auto) 2.2 Baso % (Auto) 0.4 Neut # (Auto) 12.3 H Lymph # (Auto) 2.6 [place] # (Auto) 0.7 Eos # (Auto) 0.3 Baso # (Auto) 0.1 PT 15.5 H INR 1.4 APTT 39 H pO2 VBG pH VBG pCO2 VBG HCO3 VBG Total CO2 VBG O2 Sat (Calc) VBG Base Excess VBG Potassium A-a O2 Difference Glucose Lactate FiO2 Crit Value Called To Crit Value Called By Crit Value Read Back Blood Gas Notified Time Sodium 158 H Potassium 2.5 L* Chloride 120 H Carbon Dioxide 27 Anion Gap 14 BUN 19 Creatinine 1.0 Est GFR ( Amer) > 60 Est GFR (Non-Af Amer) > 60 Random Glucose 106 Calcium 8.4 L Phosphorus 2.2 L Magnesium 1.9 Total Bilirubin 0.6 AST 27 ALT 26 Alkaline Phosphatase 151 H D Total Protein 6.2 L Albumin 2.6 L Globulin 3.6 Albumin/Globulin Ratio 0.7 L Venous Blood Potassium Urine Color Urine Clarity Urine pH Ur Specific [place] Urine Protein Urine Glucose (UA) Urine Ketones Urine Blood Urine Nitrate Urine Bilirubin Urine Urobilinogen Ur Leukocyte Esterase Urine WBC (Auto) Urine RBC (Auto) Ur Squamous Epith Cells Calcium Oxalate Crystal Urine Bacteria Urine Yeast (Budding) 08/20/18 08/20/18 08/20/18 14:22 16:35 17:55 WBC RBC Hgb Hct MCV MCH MCHC RDW Plt Count MPV Neut % (Auto) Lymph % (Auto) [place] % (Auto) Eos % (Auto) Baso % (Auto) Neut # (Auto) Lymph # (Auto) [place] # (Auto) Eos # (Auto) Baso # (Auto) PT INR APTT pO2 22 L 26 L VBG pH 7.42 7.45 H VBG pCO2 39 L 34 L VBG HCO3 24.0 23.8 VBG Total CO2 26.5 24.6 VBG O2 Sat (Calc) 40.9 51.5 VBG Base Excess 0.8 0.1 VBG Potassium 1.7 L* 1.8 L* A-a O2 Difference 79.0 Glucose 82 65 L Lactate 1.2 1.3 FiO2 21.0 21.0 Crit Value Called To Er doctor Dr patterson Crit Value Called By Baron martinez Unruly sanidad Crit Value Read Back Y Y Blood Gas Notified Time 1428 1802 Sodium 160.0 H* 159.0 H Potassium Chloride 130.0 H 130.0 H Carbon Dioxide Anion Gap BUN Creatinine Est GFR ( Amer) Est GFR (Non-Af Amer) Random Glucose Calcium Phosphorus Magnesium Total Bilirubin AST ALT Alkaline Phosphatase Total Protein Albumin Globulin Albumin/Globulin Ratio Venous Blood Potassium 1.7 L* 1.8 L* Urine Color Yellow Urine Clarity Hazy Urine pH 5.0 Ur Specific [place] 1.023 Urine Protein 2+ H Urine Glucose (UA) Normal Urine Ketones Trace Urine Blood 3+ H Urine Nitrate Negative Urine Bilirubin Negative Urine Urobilinogen Normal Ur Leukocyte Esterase 3+ H Urine WBC (Auto) 181 H Urine RBC (Auto) 231 H Ur Squamous Epith Cells < 1 Calcium Oxalate Crystal Mod H Urine Bacteria Occ H Urine Yeast (Budding) Many H
[2018-08-21] MEDS: Cefepime IV 1 gm in Dextrose 1 GM/50 ML BAG IVPB SCH ×2 (03:12→15:03)
[2018-08-21] MEDS: Dextrose 5%/0.45% NS 1,000 ML IV SCH ×3 (05:34→15:30)
[2018-08-21 10:23] LABS: BASO # 0.1 K/uL (0.0-0.2); BASO % 0.6 % (0.0-2.0); EOS # 0.3 K/uL (0.0-0.7); EOS % 2.5 % (0.0-4.0); HEMOGLOBIN 9.4 g/dL (12.0-18.0); LYMPH # 2.1 K/uL (1.0-4.3); LYMPH % 15.9 % (20.0-40.0); MEAN CELL VOLUME 86.5 fL (80.0-94.0); MEAN CORPUSCULAR HGB CONC 31.1 g/dL (33.0-37.0); MEAN PLATELET VOLUME 9.5 fL (7.2-11.7); MONO # 0.3 K/uL (0.0-0.8); MONO % 2.6 % (0.0-10.0); NEUT # 10.6 K/uL (1.8-7.0); NEUT % 78.4 % (50.0-75.0); RBC 3.48 Mil/uL (4.40-5.90); RED CELL DISTRIBUTION WIDTH 15.6 % (11.5-14.5); WHITE BLOOD COUNT 13.5 K/uL (4.8-10.8)
[2018-08-21] MEDS: Enoxaparin 30 mg Syringe SC SCH (10:23)
[2018-08-21] MEDS: Aspirin-Dipyridamole 200-25 mg ER Cap PO SCH ×2 (10:23→18:06)
[2018-08-21] MEDS: levETIRAcetam 100 mg/ml (5ml) Oral Syringe PO SCH ×2 (10:23→18:06)
[2018-08-21 10:52] LABS: BLOOD UREA NITROGEN 15 mg/dL (9-20); CALCIUM 8.3 mg/dl (8.6-10.4); GFR NON-AFRICAN AMERICAN > 60
--- NOTE | 2018-08-21 11:30 | HP ---
CHIEF COMPLAINT: Fever. HISTORY OF PRESENT ILLNESS: This is 73-year-old male, well known to me with history of seizure disorder, CVA with left-sided hemiplegia, who is compliant with diet and medications. Currently, he is in a care home, and he has high PSA, obstructive uropathy, and he was not given any further workup for his prostrate problem because of his poor general condition and poor prognosis. According to family's agreement, the patient in his usual status of health, bed bound, and he is fully dependent on care home staff for activities of his daily living. He was brought in because for last three days, he has been having fever, chills, rigor. He was treated with antibiotics with no response. He continued to be weak, lethargic, poor oral intake with fever, chills, rigors; and he was referred to emergency room. He is nonverbal. He is not coughing. His urine does not look cloudy. There is no abdominal distention. No further details obtainable. CURRENT MEDICATIONS: At the care home are Pepto-Bismol, multivitamin, Tylenol, , Zosyn, multivitamin, Levaquin, magnesium, hydroxide, Keppra, Flonase, Flomax, Florastor, Aricept, Colace, vitamin C, Aggrenox. SOCIAL HISTORY: Nonsmoker. Non-EtOH user. PAST MEDICAL HISTORY: Seizure, hypertension, and CVA. PHYSICAL EXAMINATION: GENERAL: An elderly male, in no acute distress. VITAL SIGNS: Blood pressure 133/72, pulse 94, respiratory rate 18, and temperature 98.5. SKIN: Senile turgor. Dry. Poor turgor. HEENT: Atraumatic and normocephalic. Negative pallor. Negative jaundice. Extraocular movements are intact. NECK: Supple. No JVD. No lymph node. No thyromegaly. No carotid bruits. CHEST WALL: Bilateral symmetrical expansion. LUNGS: Bilaterally clear. No rales. No rhonchi. CARDIOVASCULAR SYSTEM: S1 and S2, regular. No heave. No thrill. ABDOMEN: Soft, nontender. Bowel sounds are positive. RECTAL: No masses. No bleeding. EXTREMITIES: No clubbing, cyanosis, or edema. Enlarged prostrate. COMMERCIAL ESTIMATOR: The patient is awake and alert. He is taking, but his speech is not coherent. His left side is completely paralyzed. ASSESSMENT: 1. Fever, rule out sepsis, could be urosepsis due to obstructive uropathy versus blood borne versus pneumonia. 2. Seizure disorder. 3. Hypertension. 4. Cerebrovascular accident prior. PLAN: Admit. Souza culture. Monitor the patient. Owen Arevalo MD DT: 08/21/2018 0:57:36
--- NOTE | 2018-08-21 16:17 | RAD ---
PROCEDURE: Left Hip X-ray Radiographs. HISTORY: R/O Fx COMPARISON: Abdomen and pelvis without contrast 03/25/2018 FINDINGS: BONES: An interval left intertrochanteric comminuted fracture with displaced fracture fragments is present. Asymmetrical sclerotic changes in the left acetabulum. As has been mentioned previously-sclerotic metastatic pathology is a consideration. Correlation with patient's medical history is needed. JOINTS: Left femoral head remains in the acetabulum. Background bilateral hip arthrosis. SOFT TISSUES: Swelling about the comminuted left femoral intertrochanteric fracture fragments. OTHER FINDINGS: Bilateral hemipelvic phleboliths. Bilateral faint groin vascular calcifications. IMPRESSION: Interval comminuted fracture left femur intertrochanteric region of the fracture fragments are displaced. No dislocation. The intrinsic bone mineralization of the left acetabulum appears abnormally sclerotic. Clinical correlation is needed in terms of any known sclerotic metastases. Other areas of bone mineralization appear abnormally osteopenic with coarsened trabecula lie. No gross thickening of either ischial pectineal line appreciated. Comments: Findings were called up to the nurse's station and directly given to the nurse taking care this patient Tone on 08/21/2018 at 4:09 P.M.
--- NOTE | 2018-08-21 21:57 | CP.PCM.PN ---
Subjective - Subjective Subjective: dictated Objective - Vital Signs/Intake and Output Vital Signs (last 24 hours): Temp Pulse Resp BP Pulse Ox 99 F 81 20 102/59 L 100 08/21/18 15:00 08/21/18 16:25 08/21/18 15:00 08/21/18 15:00 08/21/18 15:00 - Medications Medications: Current Medications Acetaminophen (Tylenol 325mg Tab) 650 mg PO Q6 PRN PRN Reason: Fever >100.4 F Dipyridamole/Aspirin (Aggrenox 25-200 Mg) 1 ea PO BID COUNTS INCLUDE 234 BEDS AT THE [facility] Last Admin: 08/21/18 18:06 Dose: 1 ea Docusate Sodium (Colace) 100 mg PO HS [facility] Last Admin: 08/20/18 22:48 Dose: 100 mg Donepezil HCl (Aricept) 10 mg PO HS COUNTS INCLUDE 234 BEDS AT THE [facility] Last Admin: 08/20/18 22:48 Dose: 10 mg Enoxaparin Sodium (Lovenox) 30 mg SC DAILY COUNTS INCLUDE 234 BEDS AT THE [facility] Last Admin: 08/21/18 10:23 Dose: 30 mg Cefepime HCl (Maxipime Iv 1 Gm Premix) 1 gm in 50 mls @ 100 mls/hr IVPB Q12H [facility]; Protocol Last Admin: 08/21/18 15:03 Dose: 100 mls/hr Dextrose/Sodium Chloride (Dextrose 5%/0.45% Ns 1000 Ml) 1,000 mls @ 100 mls/hr IV .Q10H SEBASTI[facility]N Last Admin: 08/21/18 15:30 Dose: Not Given Influenza Virus Vaccine (Fluzone Quad [id number]) 60 mcg IM .ONCE ONE Stop: 08/23/18 10:01 Levetiracetam (Keppra) 1,000 mg PO BID COUNTS INCLUDE 234 BEDS AT THE [facility] Last Admin: 08/21/18 18:06 Dose: 1,000 mg - Labs Labs: 08/21/18 08:59 08/21/18 10:20 PT 15.5 SECONDS (9.7-12.2) H 08/20/18 14:16 INR 1.4 08/20/18 14:16 APTT 39 SECONDS (21-34) H 08/20/18 14:16
--- NOTE | 2018-08-21 23:05 | CARD ---
APPROVED REPORT Date of service: 08/20/2018 EKG Measurement Heart [id number] <Conclusion> Sinus rhythm with premature supraventricular complexes Nonspecific T wave abnormality Prolonged QT Abnormal ECG
[2018-08-22] MEDS: Dextrose 5%/0.45% NS 1,000 ML IV SCH ×2 (01:40→06:51)
[2018-08-22] MEDS: Cefepime IV 1 gm in Dextrose 1 GM/50 ML BAG IVPB SCH ×2 (02:17→17:23)
--- NOTE | 2018-08-22 06:51 | PN ---
DATE: 08/21/2018 SUBJECTIVE: The patient is afebrile. He is more alert. He is eating on and off, but he keeps food in his mouth. PHYSICAL EXAMINATION: VITAL SIGNS: BP 102/59, pulse 84, respiratory rate 20 and temperature 99. LUNGS: Clear. CARDIOVASCULAR SYSTEM: S1 and S2, regular. ABDOMEN: Soft. ASSESSMENT: 1. Urinary tract infection. 2. Dehydration. 3. Seizure disorder. 4. Cerebrovascular accident with left sided paralysis. PLAN: Continue antibiotics. Potassium supplementation. IV fluid. Monitor the patient. Wait for septic workup. Owen Arevalo MD
[2018-08-22 07:35] LABS: BASO % 0.3 % (0.0-2.0); EOS # 0.4 K/uL (0.0-0.7); EOS % 2.9 % (0.0-4.0); HEMOGLOBIN 8.3 g/dL (12.0-18.0); LYMPH # 3.1 K/uL (1.0-4.3); LYMPH % 22.7 % (20.0-40.0); MEAN CORPUSCULAR HGB CONC 32.2 g/dL (33.0-37.0); MEAN PLATELET VOLUME 9.2 fL (7.2-11.7); MONO # 0.5 K/uL (0.0-0.8); MONO % 3.4 % (0.0-10.0); NEUT # 9.7 K/uL (1.8-7.0); NEUT % 70.7 % (50.0-75.0); RBC 3.07 Mil/uL (4.40-5.90); RED CELL DISTRIBUTION WIDTH 15.1 % (11.5-14.5); WHITE BLOOD COUNT 13.8 K/uL (4.8-10.8)
[2018-08-22 07:59] LABS: MEAN CELL VOLUME 83.8 fL (80.0-94.0)
[2018-08-22 08:19] LABS: BLOOD UREA NITROGEN 10 mg/dL (9-20); CALCIUM 7.9 mg/dl (8.6-10.4); GFR NON-AFRICAN AMERICAN > 60
[2018-08-22] MEDS: Potassium Ch 20mEq in D5W 1,000 ML IV SCH ×2 (09:00→22:27)
[2018-08-22] MEDS: levETIRAcetam 100 mg/ml (5ml) Oral Syringe PO SCH ×2 (11:19→17:23)
[2018-08-22] MEDS: Enoxaparin 30 mg Syringe SC SCH (11:19)
[2018-08-22] MEDS: Aspirin-Dipyridamole 200-25 mg ER Cap PO SCH ×2 (11:19→17:23)
[2018-08-22] MEDS ORDERED: Potassium Chloride 20 mEq/15 ml LIQ UD PO ONE (12:15)
--- NOTE | 2018-08-22 17:09 | CT ---
Date of service: 08/22/2018 PROCEDURE: LEFT HIP CT WITHOUT CONTRAST HISTORY: pre-op evaluation for hip fracture ORIF COMPARISON: Left foot radiographs 08/21/2018. TECHNIQUE: A volumetric CT acquisition was performed through the left hip joint without intravenous contrast as requested. Reformatted data sets have been provided. Contrast Dose: None Radiation dose:Total exam DLP = 495.86 mGy-cm. This CT exam was performed using one or more of the following dose reduction techniques: Automated exposure control, adjustment of the mA and/or kV according to patient size, and/or use of iterative reconstruction technique. FINDINGS: There is marked osteopenia diffusely noted throughout the left hemipelvis as imaged including left femur suggestive of advanced osteoporosis. A complex comminuted fracture is identified through the intertrochanteric region and includes the segment immediately inferior to the lesser trochanter. Heterotopic/periosteal callus deposition is appreciate suggesting subacute nature of this fracture. No dislocation. The major fracture fragment is proximally displaced above the level of the left femoral neck and impacted with fragments immediately cephalad to the distal neck. Advanced osteoarthritis identified at the left hip joint with there is minimal residual joint space remaining and there is prominent weight-bearing cortical articular sclerosis and moderate osteophyte development. Similar changes are identified at the left sacroiliac joint. No fractures appreciated through the left pubic bones with the pubic symphysis appearing intact as well as the right ischium and inferior pubic ramus. Prominent reactive changes seen related to the fracture site in local soft tissues including limited hemorrhage. A nutrient vessel is identified the left ischium/innominate bone junction anteriorly. Note is made of extensive atherosclerosis of the inferior abdominal aorta and bilateral iliac arterial system. Moderate subcutaneous edema seen at the left hip and left hemipelvis subcutaneous soft tissues with small fluid collection or low bleed hematoma seen immediately posterior to the left hip within deep soft tissues. IMPRESSION: Complex comminuted late subacute fracture proximal left femur at the intertrochanteric and proximal diaphysis left femur with proximal distraction/impaction of the major fracture fragment. No dislocation. Local soft tissue reaction as discussed above. Advanced osteopenia suggests prominent osteoporosis.
--- NOTE | 2018-08-22 17:39 | RAD ---
Date of service: 08/22/2018 PROCEDURE: Bilateral femurs. HISTORY: preop for ORIF hip fx COMPARISON: Comparison made with CT scan left hip obtained earlier same day TECHNIQUE: Multiple views of the right and left femurs performed. FINDINGS: Re demonstrated is a comminuted intertrochanteric fracture left femur. Previously noted surrounding heterotopic -periosteal reaction suggesting a subacute fracture not appreciated on this exam. Please refer to CT scan and corresponding report for additional details. There is superior displacement of the larger distal femoral fracture fragment.. Left femoral head is appropriately located within the left fracture fragment... Degenerative osteoarthritis left hip joint There is a small cortical step along the superior margin of the right femoral neck at the along the subcapital region which is of uncertain etiology. The possibility of a nondisplaced fracture of the right femoral neck cannot be completely excluded. Right femoral head is appropriately located within the right acetabulum. Degenerative osteoarthritis right hip IMPRESSION: Comminuted intertrochanteric fracture left femur with superior displacement of the distal larger left femoral fragment. Previously described on questionable periosteal reaction heterotopic bone changes suggesting subacute the age of this fracture not appreciated on this study. Small cortical step along the superior margin of the right femoral neck at the along the subcapital region which is of uncertain etiology. The possibility of a nondisplaced fracture of the right femoral neck cannot be completely excluded.
[2018-08-22 22:17] LABS: BLOOD UREA NITROGEN 9 mg/dL (9-20); CALCIUM 8.2 mg/dl (8.6-10.4); GFR NON-AFRICAN AMERICAN > 60
--- NOTE | 2018-08-22 23:32 | CP.PCM.PN ---
Subjective - Subjective Subjective: dictated Objective - Vital Signs/Intake and Output Vital Signs (last 24 hours): Temp Pulse Resp BP Pulse Ox 100.4 F H 103 H 20 142/74 100 08/22/18 17:34 08/22/18 18:00 08/22/18 17:31 08/22/18 17:31 08/22/18 17:31 Intake and Output: 08/22/18 08/23/18 18:59 06:59 Output Total 300 Balance -300 - Medications Medications: Current Medications Acetaminophen (Tylenol 325mg Tab) 650 mg PO Q6 PRN PRN Reason: Fever >100.4 F Last Admin: 08/22/18 17:34 Dose: 650 mg Dipyridamole/Aspirin (Aggrenox 25-200 Mg) 1 ea PO BID [facility] Last Admin: 08/22/18 17:23 Dose: 1 ea Docusate Sodium (Colace) 100 mg PO HS [facility] Last Admin: 08/22/18 21:34 Dose: 100 mg Donepezil HCl (Aricept) 10 mg PO HS [facility] Last Admin: 08/22/18 21:34 Dose: 10 mg Enoxaparin Sodium (Lovenox) 30 mg SC DAILY [facility] Last Admin: 08/22/18 11:19 Dose: 30 mg Cefepime HCl (Maxipime Iv 1 Gm Premix) 1 gm in 50 mls @ 100 mls/hr IVPB Q12H [facility]; Protocol Last Admin: 08/22/18 17:23 Dose: 100 mls/hr Potassium Chloride/Dextrose (Potassium Chl 20 Meq In D5w) 1,000 mls @ 80 mls/hr IV .[id number] [facility] Last Admin: 08/22/18 22:27 Dose: Not Given Influenza Virus Vaccine (Fluzone Quad 2903-9951) 60 mcg IM .ONCE ONE Stop: 08/23/18 10:01 Levetiracetam (Keppra) 1,000 mg PO BID [facility] Last Admin: 08/22/18 17:23 Dose: 1,000 mg - Labs Labs: 08/22/18 07:10 08/22/18 21:53 PT 15.5 SECONDS (9.7-12.2) H 08/20/18 14:16 INR 1.4 08/20/18 14:16 APTT 39 SECONDS (21-34) H 08/20/18 14:16
[2018-08-23] MEDS: Magnesium Sulfate 1 gm in D5W 1 GM/100 ML BAG IVPB SCH ×2 (00:06→00:56)
[2018-08-23] MEDS ORDERED: Fluconazole IV 200mg/100 ml NS 100 ML IVPB ONE (03:00)
[2018-08-23] MEDS: Cefepime IV 1 gm in Dextrose 1 GM/50 ML BAG IVPB SCH ×2 (03:02→15:44)
[2018-08-23] MEDS ORDERED: Influenza Vaccine 60 MCG/0.5 ML SYR (3 yr & up) IM ONE (10:00)
[2018-08-23] MEDS: Aspirin-Dipyridamole 200-25 mg ER Cap PO SCH ×2 (10:34→17:40)
[2018-08-23] MEDS: levETIRAcetam 100 mg/ml (5ml) Oral Syringe PO SCH ×2 (10:34→17:40)
[2018-08-23] MEDS: Enoxaparin 30 mg Syringe SC SCH (10:44)
--- NOTE | 2018-08-23 12:11 | CP.PCM.CON ---
History of Present Illness - History of Present Illness History of Present Illness: INFECTIOUS DISEASE CONSULTATION; HPI/RADIOLOGY REVIEWED. CONSULTATION DICTATED; DICTATION NUMBER; # [id number]. IMPRESSION; SEPSIS. PNEUMONIA LLL ?CAP VS ATYPICAL PNEUMONIA. CANDIDURIA. ENLARGED PROSTATE /ELEVATED PSA ? OBSTRUCTIVE UROPATHY. S/P CHRONIC Palmer INSERTION. HYPERNATREMIA. HTN SEIZURE DISORDER. CVA W LEFT-SIDED WEAKNESS. SACRAL DECUBITUS ULCER -STAGE iii. PLAN; F/U CULTURES. CONTINUE iv CEFEPIME 1 G Q 12 HOURLY DAILY 08/20/18. ADD iv DIFLUCAN 200 MG iv PIGGYBACK LOADING DOSE.08/23/18 F/U DIFLUCAN 100 MG iv PIGGYBACK ONCE A DAY DAILY. zITHROMAX 500 MG 1 DOSE STAT FOR NOW 08/23/18 F/U ATYPICAL TITERS ORDERED. 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 IV FLUIDS PER PMD. CORRECTION OF ELECTROLYTES/POTASSIUM SUPPLEMENT PER pmd. wILL FOLLOW FROM INFECTIOUS POINT OF VIEW AND MAKE RECOMMENDATIONS NEEDED. THANK YOU. Past Patient History - Past Medical History & Family History Past Medical History?: Yes - Past Social History Smoking Status: Unknown If Ever Smoked - CARDIAC Hx Cardiac Disorders: No - PULMONARY Hx Respiratory Disorders: No - NEUROLOGICAL Hx Parkinson's Disease: Yes Hx Seizures: Yes Hx Transient Ischemic Attacks (TIA): Yes - HEENT Hx HEENT Problems: Yes Other/Comment: poor vision - RENAL Hx Chronic Kidney Disease: No - ENDOCRINE/METABOLIC Hx Endocrine Disorders: Yes - HEMATOLOGICAL/ONCOLOGICAL Hx Blood Disorders: No - INTEGUMENTARY Hx Dermatological Problems: No - MUSCULOSKELETAL/RHEUMATOLOGICAL Hx Musculoskeletal Disorders: Yes Hx Falls: Yes - GASTROINTESTINAL Hx Gastrointestinal Disorders: Yes Hx Constipation: Yes - GENITOURINARY/GYNECOLOGICAL Hx Genitourinary Disorders: Yes Hx Incontinence: Yes - PSYCHIATRIC Hx Substance Use: No - SURGICAL HISTORY Hx Surgeries: (UNKNOWN) - ANESTHESIA Hx Anesthesia: No (unknown) Hx Anesthesia Reactions: No Hx Malignant Hyperthermia: No Meds Allergies/Adverse Reactions: Allergies Allergy/AdvReac Type Severity Reaction Status Date / Time No Known Allergies Allergy Unverified 07/29/18 16:31 - Medications Medications: Current Medications Acetaminophen (Tylenol 325mg Tab) 650 mg PO Q6 PRN PRN Reason: Fever >100.4 F Last Admin: 08/22/18 17:34 Dose: 650 mg Dipyridamole/Aspirin (Aggrenox 25-200 Mg) 1 ea PO BID [facility] Last Admin: 08/23/18 10:34 Dose: 1 ea Docusate Sodium (Colace) 100 mg PO HS [facility] Last Admin: 08/22/18 21:34 Dose: 100 mg Donepezil HCl (Aricept) 10 mg PO HS [facility] Last Admin: 08/22/18 21:34 Dose: 10 mg Enoxaparin Sodium (Lovenox) 30 mg SC DAILY [facility] Last Admin: 08/23/18 10:44 Dose: 30 mg Cefepime HCl (Maxipime Iv 1 Gm Premix) 1 gm in 50 mls @ 100 mls/hr IVPB Q12H [facility]; Protocol Last Admin: 08/23/18 03:02 Dose: 100 mls/hr Potassium Chloride/Dextrose (Potassium Chl 20 Meq In D5w) 1,000 mls @ 80 mls/hr IV .[id number] [facility] Last Admin: 08/22/18 22:27 Dose: Not Given Levetiracetam (Keppra) 1,000 mg PO BID [facility] Last Admin: 08/23/18 10:34 Dose: 1,000 mg Results - Vital Signs Recent Vital Signs: Last Vital Signs Temp 97.7 F 08/23/18 07:00 Pulse 81 08/23/18 08:35 Resp 20 08/23/18 07:00 BP 134/75 08/23/18 07:00 Pulse Ox 100 08/23/18 07:00 - Labs Result Diagrams: 08/22/18 07:10 08/22/18 21:53 Labs: Laboratory Results - last 24 hr 08/22/18 08/23/18 08/23/18 21:53 06:11 10:56 Sodium 148 Potassium 3.8 Chloride 114 H Carbon Dioxide 27 Anion Gap 11 BUN 9 Creatinine 0.7 L Est GFR ( Amer) > 60 Est GFR (Non-Af Amer) > 60 POC Glucose (mg/dL) 96 83 Random Glucose 109 Calcium 8.2 L Magnesium 1.5 L
[2018-08-23] MEDS: Potassium Ch 20mEq in D5W 1,000 ML IV SCH ×2 (17:40→21:45)
--- NOTE | 2018-08-23 22:12 | CP.PCM.PN ---
Subjective - Subjective Subjective: dictated Objective - Vital Signs/Intake and Output Vital Signs (last 24 hours): Temp Pulse Resp BP Pulse Ox 97.8 F 102 H 20 129/72 100 08/23/18 15:00 08/23/18 15:00 08/23/18 15:00 08/23/18 15:00 08/23/18 15:00 Intake and Output: 08/23/18 08/24/18 18:59 06:59 Output Total 550 Balance -550 - Medications Medications: Current Medications Acetaminophen (Tylenol 325mg Tab) 650 mg PO Q6 PRN PRN Reason: Fever >100.4 F Last Admin: 08/22/18 17:34 Dose: 650 mg Dipyridamole/Aspirin (Aggrenox 25-200 Mg) 1 ea PO BID [facility] Last Admin: 08/23/18 17:40 Dose: 1 ea Docusate Sodium (Colace) 100 mg PO HS [facility] Last Admin: 08/23/18 21:46 Dose: 100 mg Enoxaparin Sodium (Lovenox) 30 mg SC DAILY [facility] Last Admin: 08/23/18 10:44 Dose: 30 mg Cefepime HCl (Maxipime Iv 1 Gm Premix) 1 gm in 50 mls @ 100 mls/hr IVPB Q12H [facility]; Protocol Last Admin: 08/23/18 15:44 Dose: 100 mls/hr Potassium Chloride/Dextrose (Potassium Chl 20 Meq In D5w) 1,000 mls @ 80 mls/hr IV .[id number] [facility] Last Admin: 08/23/18 21:45 Dose: Not Given Fluconazole 100 mg/ (Miscellaneous) 50 mls @ 100 mls/hr IVPB DAILY [facility]; Protocol Levetiracetam (Keppra) 1,000 mg PO BID [facility] Last Admin: 08/23/18 17:40 Dose: 1,000 mg - Labs Labs: 08/22/18 07:10 08/22/18 21:53 PT 15.5 SECONDS (9.7-12.2) H 08/20/18 14:16 INR 1.4 08/20/18 14:16 APTT 39 SECONDS (21-34) H 08/20/18 14:16
[2018-08-24] MEDS ORDERED: Azithromycin 500 MG in Sodium Chloride 0.9% 250 ML IVPB STA (00:21)
[2018-08-24] MEDS: Cefepime IV 1 gm in Dextrose 1 GM/50 ML BAG IVPB SCH ×2 (03:05→16:00)
[2018-08-24] MEDS: Enoxaparin 30 mg Syringe SC SCH (09:24)
[2018-08-24] MEDS: Aspirin-Dipyridamole 200-25 mg ER Cap PO SCH ×2 (09:24→17:44)
[2018-08-24] MEDS: Fluconazole IV 200mg/100 ml NS 100 MG in Premixed IV 1 EA IVPB SCH (09:24)
[2018-08-24] MEDS: levETIRAcetam 100 mg/ml (5ml) Oral Syringe PO SCH ×2 (09:24→17:44)
[2018-08-24] MEDS: Potassium Ch 20mEq in D5W 1,000 ML IV SCH ×2 (09:35→23:48)
--- NOTE | 2018-08-24 19:18 | CP.PCM.PN ---
Subjective - Subjective Subjective: dictated Objective - Vital Signs/Intake and Output Vital Signs (last 24 hours): Temp Pulse Resp BP Pulse Ox 97.9 F 94 H 20 121/68 98 08/24/18 15:00 08/24/18 15:00 08/24/18 15:00 08/24/18 15:00 08/24/18 15:00 Intake and Output: 08/24/18 08/25/18 18:59 06:59 Intake Total 900 Output Total 500 Balance 400 - Medications Medications: Current Medications Acetaminophen (Tylenol 325mg Tab) 650 mg PO Q6 PRN PRN Reason: Fever >100.4 F Last Admin: 08/22/18 17:34 Dose: 650 mg Dipyridamole/Aspirin (Aggrenox 25-200 Mg) 1 ea PO BID [facility] Last Admin: 08/24/18 17:44 Dose: 1 ea Docusate Sodium (Colace) 100 mg PO HS [facility] Last Admin: 08/23/18 21:46 Dose: 100 mg Enoxaparin Sodium (Lovenox) 30 mg SC DAILY [facility] Last Admin: 08/24/18 09:24 Dose: 30 mg Cefepime HCl (Maxipime Iv 1 Gm Premix) 1 gm in 50 mls @ 100 mls/hr IVPB Q12H [facility]; Protocol Last Admin: 08/24/18 16:00 Dose: 100 mls/hr Potassium Chloride/Dextrose (Potassium Chl 20 Meq In D5w) 1,000 mls @ 80 mls/hr IV .[id number] [facility] Last Admin: 08/24/18 09:35 Dose: 80 mls/hr Fluconazole 100 mg/ (Miscellaneous) 50 mls @ 100 mls/hr IVPB DAILY [facility]; Prot ocol Last Admin: 08/24/18 09:24 Dose: 100 mls/hr Levetiracetam (Keppra) 1,000 mg PO BID [facility] Last Admin: 08/24/18 17:44 Dose: 1,000 mg - Labs Labs: 08/22/18 07:10 08/22/18 21:53 PT 15.5 SECONDS (9.7-12.2) H 08/20/18 14:16 INR 1.4 08/20/18 14:16 APTT 39 SECONDS (21-34) H 08/20/18 14:16
[2018-08-25] MEDS: Cefepime IV 1 gm in Dextrose 1 GM/50 ML BAG IVPB SCH ×2 (02:11→14:18)
--- NOTE | 2018-08-25 05:42 | CON ---
DATE: 08/23/2018 INFECTIOUS DISEASE CONSULTATION REQUESTING PHYSICIAN: Owen Arevalo MD REASON FOR CONSULTATION: Urine cultures came back positive for yeast. HISTORY OF PRESENT ILLNESS: The patient admitted with fevers and pneumonia. The patient is a 73-year-old Afro-H[place]ian male with multiple medical problems, who was admitted from the emergency department from [facility] for elevated temperature of 101 on the day of admission. The patient was receiving Zosyn through the PICC line for recent UTI. As noted by the staff, the patient was not eating or drinking, and he was a bit more confused than usual, but arousable and awake. The patient had a chest x-ray, which showed left lower lobe infiltrate and the patient was therefore advised admission for elevated fever and pneumonia. The patient was recently also hospitalized in [facility] in July for about a week and was treated for UTI and obstructive uropathy. He was found to have a high PSA and was discharged on Sidhu catheter. No further workup was done for prostate problem because of his poor general condition as stated by the urologist, Dr. Corey who saw him during the last admission. The patient's history obtained from the chart as the patient not able to give any detail, he is nonverbal. The patient is not coughing. His urine appeared slightly cloudy and he has a Sidhu catheter in place. There is no abdominal distention and there is no history of nausea, vomiting, or diarrhea. PAST MEDICAL HISTORY: As above. History of seizure disorder, hypertension, old CVA, benign prostatic hypertrophy, and obstructive uropathy. FAMILY HISTORY: Unremarkable and not obtainable at present. SOCIAL HISTORY: As detailed in the chart. He is a nonsmoker. No history of alcohol or substance abuse. IMMUNIZATION: He is up-to-date on influenza, received in 07/2017 and history of pneumococcal vaccination in 08/2013. REVIEW OF SYSTEMS: Cannot be obtained secondary to the patient's inability to answer questions. PHYSICAL EXAMINATION: GENERAL: The patient is awake, but confused, nonverbal. VITAL SIGNS: T-max of 101 on admission, presently afebrile. Blood pressure /69, respirations 20, pulse of 92, pulse oximetry 98%. HEENT: Pupils equal, reactive to light and accommodation. Extraocular movements, moves in all directions, but unable to follow commands. NECK: Basically supple. No JVP. No lymphadenopathy appreciated. No thyromegaly. No carotid bruits. LUNGS: Diminished breath sounds at bases. CARDIOVASCULAR SYSTEM: S1 and S2, regular. No murmur. No thrills. ABDOMEN: Soft. Nontender. Bowel sounds are present. EXTREMITIES: No cyanosis, clubbing, or edema. RECTAL: Deferred. 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 Does not obey commands. Speech is slightly dysarthric and incoherent. Left side paralysis and weakness noted. LABORATORY DATA: On admission, noted the patient was admitted with sodium of 160, presently 158 and 149. Potassium is low 2.4, creatinine 0.7, BUN of 10. Liver function tests are normal. Transaminases, alkaline phosphatase 151. Blood cultures 08/20/2018, negative today. Urine culture 08/20/2018, reported positive for yeast species. WBC of 13.8, hemoglobin of 8.3 and 25.9, platelets adequate. Chest x-ray shows left lower lobe pneumonia. IMPRESSION: 1. Fevers, rule out sepsis. The patient presently has a left lower lobe pneumonia, questionable community acquired pneumonia versus atypical. 2. Candiduria. 3. History of chronic Sidhu insertion and elevated prostate-specific antigen, probably benign prostatic hypertrophy, cannot rule out obstructive uropathy, rule out malignancy. 4. Hypernatremia. 5. Hypertension. 6. History of cerebrovascular accident with left-sided weakness. 7. The patient also has sacral decubitus ulcers, stage 3. PLAN: Souza cultures. Presently continue IV Maxipime 1 g daily, started on 08/20/2018. We will add IV diazepam 200 mg loading dose followed by 100 mg daily for now. We will check atypical titers. We will give one dose of Zithromax 500 mg stat dose as ordered. We will follow cultures and adjust antibiotics. Continue sacral decubitus care. The patient presently unable to turn and review the sacral decubitus ulcers and need Wound Care to follow up on the wound care and sacral decubitus ulcer treatments. Thank you very much for allowing me to participate in the care of your patient. We will follow along with you. Mariaelena Santamaria MD
--- NOTE | 2018-08-25 08:43 | PN ---
DATE: 08/24/2018 SUBJECTIVE: The patient is afebrile. He is more alert. PHYSICAL EXAMINATION: VITAL SIGNS: BP 121/68, pulse 94, respiratory rate 20, temperature 97.9. LUNGS: Clear. CVS: S1, S2 regular. ABDOMEN: Soft. ASSESSMENT: 1. Left hip fracture, conservative management . 2. Fever, septicemia. 3. Obstructive uropathy. 4. Dehydration. PLAN: Continue antibiotics. Supportive care. The patient's family wants the patient to be full code with everything to be done, so we will respect their wishes and continue to monitor the patient and close observation. Owen Arevalo MD
[2018-08-25] MEDS: Enoxaparin 30 mg Syringe SC SCH (09:53)
[2018-08-25] MEDS: levETIRAcetam 100 mg/ml (5ml) Oral Syringe PO SCH ×2 (09:53→17:40)
[2018-08-25] MEDS: Aspirin-Dipyridamole 200-25 mg ER Cap PO SCH ×2 (09:53→17:40)
[2018-08-25] MEDS: Fluconazole IV 200mg/100 ml NS 100 MG in Premixed IV 1 EA IVPB SCH (09:53)
--- NOTE | 2018-08-25 10:29 | PN ---
DATE: 08/23/2018 SUBJECTIVE: The patient, Peterson, is afebrile today. He is more alert. He denies any hip pain. PHYSICAL EXAMINATION: VITAL SIGNS: Blood pressure 129/72, pulse 102, respiratory rate 20, temperature 97.8. LUNGS: Bilaterally clear. No rales. No rhonchi. CARDIOVASCULAR SYSTEM: S1 and S2, regular. No heave. No thrill. ABDOMEN: Soft and nontender. Bowel sounds are positive. ASSESSMENT: 1. Left hip fracture. I discussed with the patient's daughter, and I also discussed with Orthopedics. The patient is not a surgical candidate. Not only, he is in a poor condition to withstand anesthesia, but he also has no need for hip replacement because the left side is paralyzed, and he has been bed-bound and nonambulatory. 2. Urinary tract infection, rule out septicemia. 3. Benign prostatic hyperplasia, rule out prostate cancer. 4. Dehydration. PLAN: Continue current medications. ID followup. Monitor the patient. Owen Arevalo MD
--- NOTE | 2018-08-25 10:29 | PN ---
DATE: 08/22/2018 SUBJECTIVE: The patient, Peterson, has low-grade fever. He has cloudy urine. The patient has a hip fracture. The patient has been seen by Orthopedics, and the patient has a poor prognosis. His family in the past has denied all kind of surgical intervention. The patient is not a candidate for any kind of surgery. Neither he is stable nor there is a need as he has been nonambulatory. It is unknown how the patient got this fracture. The patient is not able to answer, neither does he have pain. PHYSICAL EXAMINATION: VITAL SIGNS: Blood pressure 142/74, pulse 105, respiratory rate 20, and temperature 100.4. LUNGS: Clear. CVS: S1, S2 regular. ABDOMEN: Soft. ASSESSMENT: 1. Left hip fracture, etiology unknown. Spoke to Dr. Woodward. Due to the patient's condition, he is not a surgical candidate. 2. Obstructive uropathy. Most likely, it is malignant neoplasm of prostate. 3. Seizure disorder. 4. Urinary tract infection, septicemia. PLAN: Antibiotics, ID consult, and no surgical intervention. Owen Arevalo MD
--- NOTE | 2018-08-25 10:48 | CP.PCM.CON ---
History of Present Illness - History of Present Illness History of Present Illness: Palliative consult requested by toure CRYPTOLOGIC LINGUIST for goals of care discussion as per family's request Patient is a 73 yo AA male admitted [place] with fever of 101.0. While there., patient was receiving Zosyn Iv via PICC line for recently diagnosed UTI, but symptoms persisted. On the day of admission patient did not take any PO fluids/ food due to weakness. In ED patient was diagnosed with RLL infiltrate and complex commuted late subacute proximal Left femur fracture, per CT . Per Doctor Mickey's discussion with family, conservative treatment was agreed upon. Yeast urinary infection. Maxipime Iv and Diflucan IV on board. BP 124/70, HR 69, O2Sat 100 %, afebrile WBC 13.8, Hb 8.3, K level normal after being replaced PMH: seizures, CVA, non verbal, Left sided weakness, bed ridden Soc. Hx: , [place] resident Fam. Hx: unknown Review of Systems - Review of Systems All systems: reviewed and no additional remarkable complaints except Review of Systems: ROS unobtainable from patient due to difficulties talking. ROS obtained from nursing. Per nursing, patient had been afebrile and was tolerating PO intake Past Patient History - Past Medical History & Family History Past Medical History?: Yes - Past Social History Smoking Status: Unknown If Ever Smoked - CARDIAC Hx Cardiac Disorders: No - PULMONARY Hx Respiratory Disorders: No - NEUROLOGICAL Hx Parkinson's Disease: Yes Hx Seizures: Yes Hx Transient Ischemic Attacks (TIA): Yes - HEENT Hx HEENT Problems: Yes Other/Comment: poor vision - RENAL Hx Chronic Kidney Disease: No - ENDOCRINE/METABOLIC Hx Endocrine Disorders: Yes - HEMATOLOGICAL/ONCOLOGICAL Hx Blood Disorders: No - INTEGUMENTARY Hx Dermatological Problems: No - MUSCULOSKELETAL/RHEUMATOLOGICAL Hx Musculoskeletal Disorders: Yes Hx Falls: Yes - GASTROINTESTINAL Hx Gastrointestinal Disorders: Yes Hx Constipation: Yes - GENITOURINARY/GYNECOLOGICAL Hx Genitourinary Disorders: Yes Hx Incontinence: Yes - PSYCHIATRIC Hx Substance Use: No - SURGICAL HISTORY Hx Surgeries: (UNKNOWN) - ANESTHESIA Hx Anesthesia: No (unknown) Hx Anesthesia Reactions: No Hx Malignant Hyperthermia: No Meds Allergies/Adverse Reactions: Allergies Allergy/AdvReac Type Severity Reaction Status Date / Time No Known Allergies Allergy Unverified 07/29/18 16:31 - Medications Medications: Current Medications Acetaminophen (Tylenol 325mg Tab) 650 mg PO Q6 PRN PRN Reason: Fever >100.4 F Last Admin: 08/22/18 17:34 Dose: 650 mg Dipyridamole/Aspirin (Aggrenox 25-200 Mg) 1 ea PO BID [facility] Last Admin: 08/25/18 09:53 Dose: 1 ea Docusate Sodium (Colace) 100 mg PO HS [facility] Last Admin: 08/24/18 21:25 Dose: 100 mg Enoxaparin Sodium (Lovenox) 30 mg SC DAILY [facility] Last Admin: 08/25/18 09:53 Dose: 30 mg Cefepime HCl (Maxipime Iv 1 Gm Premix) 1 gm in 50 mls @ 100 mls/hr IVPB Q12H [facility]; Protocol Last Admin: 08/25/18 02:11 Dose: 100 mls/hr Fluconazole 100 mg/ (Miscellaneous) 50 mls @ 100 mls/hr IVPB DAILY [facility]; Protocol Last Admin: 08/25/18 09:53 Dose: 100 mls/hr Levetiracetam (Keppra) 1,000 mg PO BID [facility] Last Admin: 08/25/18 09:53 Dose: 1,000 mg Physical Exam - Constitutional Appears: Chronically Ill - Head Exam Head Exam: ATRAUMATIC, NORMAL INSPECTION, NORMOCEPHALIC - Eye Exam Eye Exam: EOMI, Normal appearance, PERRL Pupil Exam: NORMAL ACCOMODATION, PERRL - ENT Exam ENT Exam: Mucous Membranes Moist, Normal Exam - Neck Exam Neck exam: Positive for: Normal Inspection - Respiratory Exam Respiratory Exam: Decreased Breath Sounds, NORMAL BREATHING PATTERN - Cardiovascular Exam Cardiovascular Exam: REGULAR RHYTHM, +S1, +S2 - GI/Abdominal Exam GI & Abdominal Exam: Normal Bowel Sounds, Soft - Rectal Exam Rectal Exam: Deferred - Exam Additional comments: Sidhu cath in situ - Extremities Exam Additional comments: contracted, left sided weakness - Back Exam Back exam: NORMAL INSPECTION - Neurological Exam Neurological exam: Alert, Altered - Psychiatric Exam Psychiatric exam: Flat Affect - Skin Skin Exam: Normal Color, Warm Additional comments: left knee pressure sore Results - Vital Signs Recent Vital Signs: Last Vital Signs Temp 98.1 F 08/25/18 07:51 Pulse 95 H 08/25/18 08:03 Resp 20 08/25/18 07:51 BP 124/70 08/25/18 07:51 Pulse Ox 100 08/25/18 07:51 - Labs Result Diagrams: 08/25/18 10:51 08/22/18 21:53 Labs: Laboratory Results - last 24 hr 08/24/18 08/24/18 08/24/18 11:29 16:35 21:35 POC Glucose (mg/dL) 114 H 104 106 08/25/18 06:59 POC Glucose (mg/dL) 101 Assessment & Plan - Assessment and Plan (Free Text) Assessment: Palliative consult Full Code, there is no Advance directive on chart, PPS 10% I reviewed medical records, all diagnostic studies, examined patient in the bed Patient is alert with speech that is not clear. Patient attempts to maintain discussion but is hard to understand. Patient is able to fallow simple commends and makes appropriate eye contacts.. I fed him apple sauce and he swallowed it well. Breath sounds are diminished, without added sounds, RR regular, O2 Sat 100 % RA Abdomen soft, hypoactive bowel sounds, incontinent Sidhu cath at bed side, urine clear. per H&P patient has obstructive uropathy Upper and lower extremities are contracted, there is a left sided weakness. Patient is max assistance with care Per Doctor Mickey's discussion with family Full Code was requested. I will meet with family today to discuss expectations of care and Code status. 2 pm Family meeting attended by patient's daughter Umberto Wright. The other daughter Peterson Walter was not available over the phone. I reviewed patient's clinical presentation and elicited daughter's understanding and expectations of care. She stated seeing decline in her father's condition especially since July of this year. Mrs. Shipman is concerned with her father's comfort. She wanted him to be kept clean, fed and be pain free from the left hip fracture. She hopes, patient will return to [place] when more stable. Code status discussed. POLST introduced. Mrs. Shipman was very clear that she would not want her father's life to be prolonged by agressive measures. She wanted him to peacefuly when his time comes. She signed DNR/DNI. This was shared with Doctor Arevalo who agreed. Impression * Chronically ill male * RLL infiltrate * left sided weakness * left hip Fx * left arm contracted * aphasia * Limited mobility * urinary retention * family advocates for conservative measures Suggestions * Max assistance with care * Assist with feeding * aspiration precautions * Tylenol PRN for left hip pain * Discharge planing to [place] * DNR/DNI Advance care planing time 50 min
--- NOTE | 2018-08-25 11:05 | CP.PCM.PCO ---
Physician Communication Note - Physician Communication Note Physician Communication Note: Family meeting at 1 : 30 pm today
[2018-08-25 11:10] LABS: BASO # 0.1 K/uL (0.0-0.2); BASO % 0.9 % (0.0-2.0); EOS # 0.3 K/uL (0.0-0.7); EOS % 2.3 % (0.0-4.0); HEMOGLOBIN 8.6 g/dL (12.0-18.0); LYMPH # 3.4 K/uL (1.0-4.3); LYMPH % 23.4 % (20.0-40.0); MEAN CELL VOLUME 82.3 fL (80.0-94.0); MEAN CORPUSCULAR HEMOGLOBIN 27.7 pg (27.0-31.0); MEAN CORPUSCULAR HGB CONC 33.6 g/dL (33.0-37.0); MONO # 0.7 K/uL (0.0-0.8); MONO % 4.9 % (0.0-10.0); NEUT % 68.5 % (50.0-75.0); NRBC % 0.1 % (0.0-2.0); RBC 3.09 Mil/uL (4.40-5.90); RED CELL DISTRIBUTION WIDTH 15.8 % (11.5-14.5); WHITE BLOOD COUNT 14.6 K/uL (4.8-10.8)
--- NOTE | 2018-08-25 16:01 | CARD ---
APPROVED REPORT Date of service: 08/23/2018 EXAM: Two-dimensional and M-mode echocardiogram with Doppler and color Doppler. Other Information Quality : GoodRhythm : NSR INDICATION Dyspnea RISK FACTORS Hypertension Hyperlipidemia 2D DIMENSIONS LA Qoller18 (18-58mL) M-Mode DIMENSIONS Left Atrium (MM)3.10 (2.5-4.0cm)IVSd0.68 (0.7-1.1cm) Aortic Root2.70 (2.2-3.7cm)LVDd4.06 (4.0-5.6cm) Aortic Cusp Exc.1.85 (1.5-2.0cm)PWd0.65 (0.7-1.1cm) FS (%) 24 %LVDs3.10 (2.0-3.8cm) LVEF (%)48 (>50%) Aortic Valve AoV Peak Clgofzcu993.9cm/Sulma Peak GR.6mmHg Mitral Valve MV E Bugxxsfu89.0cm/sMV A Ennrcoac93.4cm/sE/A ratio0.9 TDI Lateral E' Peak V5.58cm/sMedial E' Peak V5.77cm/sE/Lateral E'14.7 E/Medial E'14.2 Tricuspid Valve TR Peak Oaajqnmh941yi/sTR Peak Gr.[id number] LEFT VENTRICLE The left ventricle is normal size. Proximal septal thickening is noted. The echo findings are not consistent with left ventricular outflow obstruction. Left ventricle systolic function is borderline. The Ejection Fraction is 45-50%. There is normal LV segmental wall motion. Tissue Doppler imaging reveals abnormal left ventricular diastolic dysfunction. RIGHT VENTRICLE The right ventricle is normal size. There is normal right ventricular wall thickness. The right ventricular systolic function is normal. ATRIA The left atrium size is normal. The right atrium size is normal. The interatrial septum is intact with no evidence for an atrial septal defect. AORTIC VALVE The aortic valve is normal in structure. No aortic regurgitation is present. There is no aortic valvular stenosis. There is no aortic valvular vegetation. MITRAL VALVE The mitral valve is normal in structure. There is no evidence of mitral valve prolapse. There is no mitral valve stenosis. Mitral regurgitation is mild. TRICUSPID VALVE The tricuspid valve is normal in structure. There is mild tricuspid regurgitation. Right ventricular systolic pressure is estimated at 40-50 mmHg. There is mild-moderate pulmonary hypertension. PULMONIC VALVE The pulmonic valve is not well visualized. There is no pulmonic valvular regurgitation. GREAT VESSELS The aortic root is normal in size. PERICARDIAL EFFUSION There is no significant pericardial effusion. <Conclusion> Left ventricle systolic function is borderline. The Ejection Fraction is 45-50%. Diastolic dysfunction. No aortic regurgitation is present. Mitral regurgitation is mild. There is mild tricuspid regurgitation. There is mild-moderate pulmonary hypertension. There is no pulmonic valvular regurgitation.
--- NOTE | 2018-08-25 22:03 | CP.PCM.PN ---
Subjective - Subjective Subjective: dictated Objective - Vital Signs/Intake and Output Vital Signs (last 24 hours): Temp Pulse Resp BP Pulse Ox 97.4 F L 97 H 20 140/73 98 08/25/18 15:00 08/25/18 15:35 08/25/18 15:00 08/25/18 15:00 08/25/18 15:00 Intake and Output: 08/25/18 08/26/18 18:59 06:59 Intake Total 940 Output Total 1100 Balance -160 - Medications Medications: Current Medications Acetaminophen (Tylenol 325mg Tab) 650 mg PO Q6 PRN PRN Reason: Fever >100.4 F Last Admin: 08/22/18 17:34 Dose: 650 mg Dipyridamole/Aspirin (Aggrenox 25-200 Mg) 1 ea PO BID [facility] Last Admin: 08/25/18 17:40 Dose: 1 ea Docusate Sodium (Colace) 100 mg PO HS [facility] Last Admin: 08/25/18 21:41 Dose: 100 mg Enoxaparin Sodium (Lovenox) 30 mg SC DAILY [facility] Last Admin: 08/25/18 09:53 Dose: 30 mg Cefepime HCl (Maxipime Iv 1 Gm Premix) 1 gm in 50 mls @ 100 mls/hr IVPB Q12H [facility]; Protocol Last Admin: 08/25/18 14:18 Dose: 100 mls/hr Fluconazole 100 mg/ (Miscellaneous) 50 mls @ 100 mls/hr IVPB DAILY [facility]; Protocol Last Admin: 08/25/18 09:53 Dose: 100 mls/hr Levetiracetam (Keppra) 1,000 mg PO BID [facility] Last Admin: 08/25/18 17:40 Dose: 1,000 mg - Labs Labs: 08/25/18 10:51 08/22/18 21:53 PT 15.5 SECONDS (9.7-12.2) H 08/20/18 14:16 INR 1.4 08/20/18 14:16 APTT 39 SECONDS (21-34) H 08/20/18 14:16
--- NOTE | 2018-08-25 23:32 | CP.PCM.PN ---
Subjective - Date & Time of Evaluation Date of Evaluation: 08/25/18 Time of Evaluation: 23:31 - Subjective Subjective: CHIEF COMPLAINTS TODAY : TEMP 97.4, VSS CONFUSED. CAHECTIC, CHRONICALLY ILL ROS. ON OBSERVATION HEENT : N. POOR ORAL HYGIENE Resp : No cough, wheezing ,pleuritic CP ,or hemoptysis Cardio : No anginal CP, PND, orthopnea, palpitation GI : No abd.pain, n/v ,diarrhea or GI bleeding . 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 Musculoskel : No joint swelling , Derm : SACRAL DEC. ULCERS -STAGE 3 Psych : Normal affect. Ext : No swelling ,calf pain PE. Pt. is CONFUSED, awake in no distress. V.S As noted in the chart Head ,ear nose,throat and eyes : Normal. POOR ORAL HYGIENE Neck : Supple with normal carotids. Lungs: RHONCHI LT SIDE Heart : S1 & S2 normal with S4. No murmur. Abd : Soft non tender with normal bowel sounds. Neuro : Moves all ext. with no localized deficit. Ext : No edema with intact pulses.Non tender calves Derm : +VE SACRAL decubitus ulcer.-STAGE 3 LABS/RADIOLOGY: WBC 14.6/ H/H 8.6 / MYCOPLASMA IGM -VE LEGIONELLA UR. AG -VE URINE CULTURE 08/23/18 +VE YEAST BLOOD CULTURE 08/20/18 -VE X 5DAYS Objective - Vital Signs/Intake and Output Vital Signs (last 24 hours): Temp Pulse Resp BP Pulse Ox 97.4 F L 97 H 20 140/73 98 08/25/18 15:00 08/25/18 15:35 08/25/18 15:00 08/25/18 15:00 08/25/18 15:00 Intake and Output: 08/25/18 08/26/18 18:59 06:59 Intake Total 940 80 Output Total 1100 2600 Balance -160 -2520 - Medications Medications: Current Medications Acetaminophen (Tylenol 325mg Tab) 650 mg PO Q6 PRN PRN Reason: Fever >100.4 F Last Admin: 08/22/18 17:34 Dose: 650 mg Dipyridamole/Aspirin (Aggrenox 25-200 Mg) 1 ea PO BID [facility] Last Admin: 08/25/18 17:40 Dose: 1 ea Docusate Sodium (Colace) 100 mg PO HS [facility] Last Admin: 08/25/18 21:41 Dose: 100 mg Enoxaparin Sodium (Lovenox) 30 mg SC DAILY [facility] Last Admin: 08/25/18 09:53 Dose: 30 mg Cefepime HCl (Maxipime Iv 1 Gm Premix) 1 gm in 50 mls @ 100 mls/hr IVPB Q12H [facility]; Protocol Last Admin: 08/25/18 14:18 Dose: 100 mls/hr Fluconazole 100 mg/ (Miscellaneous) 50 mls @ 100 mls/hr IVPB DAILY [facility]; Protocol Last Admin: 08/25/18 09:53 Dose: 100 mls/hr Levetiracetam (Keppra) 1,000 mg PO BID [facility] Last Admin: 08/25/18 17:40 Dose: 1,000 mg - Labs Labs: 08/25/18 10:51 08/22/18 21:53 PT 15.5 SECONDS (9.7-12.2) H 08/20/18 14:16 INR 1.4 08/20/18 14:16 APTT 39 SECONDS (21-34) H 08/20/18 14:16 Assessment and Plan - Assessment and Plan (Free Text) Assessment: IMPRESSION; SEPSIS SOURCE ASPIRATION PNEUMONIA LLL CANDIDURIA. ENLARGED PROSTATE /ELEVATED PSA ? OBSTRUCTIVE UROPATHY. S/P CHRONIC Palmer INSERTION. HYPERNATREMIA. HTN SEIZURE DISORDER. CVA W LEFT-SIDED WEAKNESS. SACRAL DECUBITUS ULCER -STAGE iii. PLAN; F/U CULTURES. CONTINUE iv CEFEPIME 1 G Q 12 HOURLY DAILY 08/20/18. ADD IV FLAGYL 500MG IVPB [id number] FOR ANAEROBIC COVERAGE. 08/26/18 ADD iv DIFLUCAN 200 MG iv PIGGYBACK LOADING DOSE.08/23/18 F/U DIFLUCAN 100 MG iv PIGGYBACK ONCE A DAY DAILY. 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 IV FLUIDS PER PMD.
[2018-08-26] MEDS: metroNIDAZOLE IV 500 mg/100 ml 500 MG/100 ML BAG IVPB SCH ×2 (00:53→11:16)
[2018-08-26] MEDS: Cefepime IV 1 gm in Dextrose 1 GM/50 ML BAG IVPB SCH ×2 (02:57→14:01)
--- NOTE | 2018-08-26 07:02 | PN ---
DATE: 08/25/2018 SUBJECTIVE: The patient, Peterson, is afebrile. He has a left hip fracture which is not repairable due to the patient's poor risks. The patient is afebrile. No shortness of breath. He is not in distress. No seizure-like activity. PHYSICAL EXAMINATION: VITAL SIGNS: BP 140/73, pulse 97, respiratory rate 20, temperature 97.4. LUNGS: Clear. CARDIOVASCULAR SYSTEM: S1 and S2, regular. ABDOMEN: Soft. ASSESSMENT: 1. Urinary tract infection, obstructive uropathy, rule out septicemia. He has yeast in the urine. 2. Hypertension. 3. Cerebrovascular accident with left-sided paralysis. 4. Seizure disorder. PLAN: Continue current medications. Monitor the patient. Owen Arevalo MD
--- NOTE | 2018-08-26 08:04 | CP.PCM.CON ---
History of Present Illness - History of Present Illness History of Present Illness: Orthopedic consultation Dr. Woodward 73M with PMH of elevated PSA (no workup completed at family request per record), fever/chills, admitted for UTI and pneumonia possible sepsis. Patient complaining of hip pain at that time, and found to have complex left proximal femur fracture, pathological in appearance on imaging. Unclear if any trauma. Patient is non ambulatory, dependent for all ADLs per record and is [place] resident. PMH: seizure disorder, parkinsons, CVA, obstructive uropathy elevated PSA No definitive diagnosis for cancer NKDA Review of Systems - Review of Systems Systems not reviewed;Unavailable: Altered Mental Status Past Patient History - Past Medical History & Family History Past Medical History?: Yes Past Family History: Reviewed and not pertinent - Past Social History Smoking Status: Unknown If Ever Smoked - CARDIAC Hx Cardiac Disorders: No - PULMONARY Hx Respiratory Disorders: No - NEUROLOGICAL Hx Parkinson's Disease: Yes Hx Seizures: Yes Hx Transient Ischemic Attacks (TIA): Yes - HEENT Hx HEENT Problems: Yes Other/Comment: poor vision - RENAL Hx Chronic Kidney Disease: No - ENDOCRINE/METABOLIC Hx Endocrine Disorders: Yes - HEMATOLOGICAL/ONCOLOGICAL Hx Blood Disorders: No - INTEGUMENTARY Hx Dermatological Problems: No - MUSCULOSKELETAL/RHEUMATOLOGICAL Hx Musculoskeletal Disorders: Yes Hx Falls: Yes - GASTROINTESTINAL Hx Gastrointestinal Disorders: Yes Hx Constipation: Yes - GENITOURINARY/GYNECOLOGICAL Hx Genitourinary Disorders: Yes Hx Incontinence: Yes - PSYCHIATRIC Hx Substance Use: No - SURGICAL HISTORY Hx Surgeries: (UNKNOWN) - ANESTHESIA Hx Anesthesia: No (unknown) Hx Anesthesia Reactions: No Hx Malignant Hyperthermia: No Meds Allergies/Adverse Reactions: Allergies Allergy/AdvReac Type Severity Reaction Status Date / Time No Known Allergies Allergy Unverified 07/29/18 16:31 - Medications Medications: Current Medications Acetaminophen (Tylenol 325mg Tab) 650 mg PO Q6 PRN PRN Reason: Fever >100.4 F Last Admin: 08/22/18 17:34 Dose: 650 mg Dipyridamole/Aspirin (Aggrenox 25-200 Mg) 1 ea PO BID [facility] Last Admin: 08/25/18 17:40 Dose: 1 ea Docusate Sodium (Colace) 100 mg PO HS [facility] Last Admin: 08/25/18 21:41 Dose: 100 mg Enoxaparin Sodium (Lovenox) 30 mg SC DAILY [facility] Last Admin: 08/25/18 09:53 Dose: 30 mg Cefepime HCl (Maxipime Iv 1 Gm Premix) 1 gm in 50 mls @ 100 mls/hr IVPB Q12H [facility]; Protocol Last Admin: 08/26/18 02:57 Dose: 100 mls/hr Fluconazole 100 mg/ (Miscellaneous) 50 mls @ 100 mls/hr IVPB DAILY [facility]; Protocol Last Admin: 08/25/18 09:53 Dose: 100 mls/hr Metronidazole (Flagyl) 500 mg in 100 mls @ 100 mls/hr IVPB Q12H [facility]; Protocol Last Admin: 08/26/18 00:53 Dose: 100 mls/hr Levetiracetam (Keppra) 1,000 mg PO BID [facility] Last Admin: 08/25/18 17:40 Dose: 1,000 mg Physical Exam - Constitutional Additional comments: alert at times, follows some commands Results - Vital Signs Recent Vital Signs: Last Vital Signs Temp 98.6 F 08/26/18 00:05 Pulse 98 H 08/26/18 07:57 Resp 20 08/26/18 00:05 BP 146/78 08/26/18 00:05 Pulse Ox 98 08/26/18 00:05 - Labs Result Diagrams: 08/25/18 10:51 08/22/18 21:53 Labs: Laboratory Results - last 24 hr 08/25/18 08/25/18 08/25/18 10:51 10:51 11:07 WBC 14.6 H RBC 3.09 L Hgb 8.6 L Hct 25.5 L MCV 82.3 MCH 27.7 MCHC 33.6 RDW 15.8 H Plt Count 293 MPV 10.0 Neut % (Auto) 68.5 Lymph % (Auto) 23.4 [place] % (Auto) 4.9 Eos % (Auto) 2.3 Baso % (Auto) 0.9 Neut # (Auto) 10.0 H Lymph # (Auto) 3.4 Rock # (Auto) 0.7 Eos # (Auto) 0.3 Baso # (Auto) 0.1 POC Glucose (mg/dL) 120 H Mycoplasma pneumon IgM Negative 08/25/18 08/25/18 08/26/18 16:00 21:08 06:13 WBC RBC Hgb Hct MCV MCH MCHC RDW Plt Count MPV Neut % (Auto) Lymph % (Auto) Rock % (Auto) Eos % (Auto) Baso % (Auto) Neut # (Auto) Lymph # (Auto) Rock # (Auto) Eos # (Auto) Baso # (Auto) POC Glucose (mg/dL) 108 113 H 90 Mycoplasma pneumon IgM - Impressions Impression: ccession No. : [id number] Patient Name / ID : MAYRA MAIN / [id number] Exam Date : 08/22/2018 16:22:41 ( Approved ) Study Comment : Sex / Age : M / 73Y Creator : Chris Bustamante MD Dictator : Chris Bustamante MD Tripper : Litigator : Chris Bustamante MD Approver2 : Report Date : 08/22/2018 17:06:01 My Comment : Date of service: 08/22/2018 PROCEDURE: LEFT HIP CT WITHOUT CONTRAST HISTORY: pre-op evaluation for hip fracture ORIF COMPARISON: Left foot radiographs 08/21/2018. TECHNIQUE: A volumetric CT acquisition was performed through the left hip joint without intravenous contrast as requested. Reformatted data sets have been provided. Contrast Dose: None Radiation dose:Total exam DLP = 495.86 mGy-cm. This CT exam was performed using one or more of the following dose reduction techniques: Automated exposure control, adjustment of the mA and/or kV according to patient size, and/or use of iterative reconstruction technique. FINDINGS: There is marked osteopenia diffusely noted throughout the left hemipelvis as imaged including left femur suggestive of advanced osteoporosis. A complex comminuted fracture is identified through the intertrochanteric region and includes the segment immediately inferior to the lesser trochanter. Heterotopic/periosteal callus deposition is appreciate suggesting subacute nature of this fracture. No dislocation. The major fracture fragment is proximally displaced above the level of the left femoral neck and impacted with fragments immediately cephalad to the distal neck. Advanced osteoarthritis identified at the left hip joint with there is minimal residual joint space remaining and there is prominent weight-bearing cortical articular sclerosis and moderate osteophyte development. Similar changes are identified at the left sacroiliac joint. No fractures appreciated through the left pubic bones with the pubic symphysis appearing intact as well as the right ischium and inferior pubic ramus. Prominent reactive changes seen related to the fracture site in local soft tissu es including limited hemorrhage. A nutrient vessel is identified the left ischium/innominate bone junction anteriorly. Note is made of extensive atherosclerosis of the inferior abdominal aorta and bilateral iliac arterial system. Moderate subcutaneous edema seen at the left hip and left hemipelvis subcutaneous soft tissues with small fluid collection or low bleed hematoma seen immediately posterior to the left hip within deep soft tissues. IMPRESSION: Complex comminuted late subacute fracture proximal left femur at the intertrochanteric and proximal diaphysis left femur with proximal dist raction/impaction of the major fracture fragment. No dislocation. Local soft tissue reaction as discussed above. Advanced osteopenia suggests prominent osteoporosis. atient Name / ID : MAYRA MAIN / [id number] Exam Date : 08/22/2018 15:41:56 ( Approved ) Study Comment : Sex / Age : M / 73Y Creator : Dexter Verduzco RT Dictator : Darren Regan MD Tripper : Litigator : Darren Regan MD Approver2 : Report Date : 08/22/2018 16:32:36 My Comment : Date of service: 08/22/2018 PROCEDURE: Bilateral femurs. HISTORY: preop for ORIF hip fx COMPARISON: Comparison made with CT scan left hip obtained earlier same day TECHNIQUE: Multiple views of the right and left femurs performed. FINDINGS: Re demonstrated is a comminuted intertrochanteric fracture left femur. Previously noted surrounding heterotopic -periosteal reaction suggesting a subacute fracture not appreciated on this exam. Please refer to CT scan and corresponding report for additional details. There is superior displacement of the larger distal femoral fracture fragment.. Left femoral head is appropriately located within the left fracture fragment... Degenerative osteoarthritis left hip joint There is a small cortical step along the superior margin of the right femoral neck at the along the subcapital region which is of uncertain etiology. The possibility of a nondisplaced fracture of the right femoral neck cannot be completely excluded. Right femoral head is appropriately located within the right acetabulum. Degenerative osteoarthritis right hip IMPRESSION: Comminuted intertrochanteric fracture left femur with superior displacement of the distal larger left femoral fragment. Previously described on questionable periosteal reaction heterotopic bone changes suggesting subacute the age of this fracture not appreciated on this study. Small cortical step along the superior margin of the right femoral neck at the along the subcapital region which is of uncertain etiology. The possibility of a nondisplaced fracture of the right femoral neck cannot be completely excluded. Assessment & Plan (1) Pathological fracture, left femur, initial encounter for fracture Assessment and Plan: family refused any surgical intervention for fracture as per Dr. Arevalo patient is non ambulatory, completely dependent, high risk for surgery, complex fracture that is suspicious for pathological fracture, suspect metastatic disease from imaging pain mgmt palliative care consult appreciated VTE proph, on lovenox, increased risk of VTE due to fracture, swelling, possible malignancy above as per Dr. Woodward no orthopedic intervention planned at family request. Conservative and palliative treatment only Status: Acute
[2018-08-26] MEDS: levETIRAcetam 100 mg/ml (5ml) Oral Syringe PO SCH ×2 (09:51→18:43)
[2018-08-26] MEDS: Fluconazole IV 200mg/100 ml NS 100 MG in Premixed IV 1 EA IVPB SCH (09:51)
[2018-08-26] MEDS: Enoxaparin 30 mg Syringe SC SCH (09:51)
[2018-08-26] MEDS: Aspirin-Dipyridamole 200-25 mg ER Cap PO SCH ×2 (09:51→18:44)
[2018-08-26 15:35] VITALS: RESP 20
--- NOTE | 2018-08-26 21:48 | CP.PCM.PN ---
Subjective - Subjective Subjective: dictated Objective - Vital Signs/Intake and Output Vital Signs (last 24 hours): Temp Pulse Resp BP Pulse Ox 97.8 F 99 H 20 164/85 H 100 08/26/18 15:00 08/26/18 15:00 08/26/18 15:00 08/26/18 15:00 08/26/18 15:00 Intake and Output: 08/26/18 10 18:59 06:59 Intake Total 500 Output Total 550 Balance -50 - Medications Medications: Current Medications Acetaminophen (Tylenol 325mg Tab) 650 mg PO Q6 PRN PRN Reason: Fever >100.4 F Last Admin: 08/22/18 17:34 Dose: 650 mg Dipyridamole/Aspirin (Aggrenox 25-200 Mg) 1 ea PO BID [facility] Last Admin: 08/26/18 18:44 Dose: 1 ea Docusate Sodium (Colace) 100 mg PO HS [facility] Last Admin: 08/25/18 21:41 Dose: 100 mg Enoxaparin Sodium (Lovenox) 30 mg SC DAILY [facility] Last Admin: 08/26/18 09:51 Dose: 30 mg Cefepime HCl (Maxipime Iv 1 Gm Premix) 1 gm in 50 mls @ 100 mls/hr IVPB Q12H [facility]; Protocol Last Admin: 08/26/18 14:01 Dose: 100 mls/hr Fluconazole 100 mg/ (Miscellaneous) 50 mls @ 100 mls/hr IVPB DAILY [facility]; Protocol Last Admin: 08/26/18 09:51 Dose: 100 mls/hr Metronidazole (Flagyl) 500 mg in 100 mls @ 100 mls/hr IVPB Q12H [facility]; Protocol Last Admin: 08/26/18 11:16 Dose: 100 mls/hr Levetiracetam (Keppra) 1,000 mg PO BID [facility] Last Admin: 08/26/18 18:43 Dose: 1,000 mg - Labs Labs: 08/25/18 10:51 08/22/18 21:53 PT 15.5 SECONDS (9.7-12.2) H 08/20/18 14:16 INR 1.4 08/20/18 14:16 APTT 39 SECONDS (21-34) H 08/20/18 14:16
--- NOTE | 2018-08-26 22:25 | CP.PCM.PN ---
Subjective - Date & Time of Evaluation Date of Evaluation: 08/26/18 Time of Evaluation: 22:25 - Subjective Subjective: CHIEF COMPLAINTS TODAY : TEMP 97.4, VSS CONFUSED. CAHECTIC, DEPENDANT ADL SEEN BY ORTHO ? PATHOLOGICAL FRACTURE LT. FEMUR. NO INTERVENTION AT PRESENT ROS. ON OBSERVATION HEENT : N. POOR ORAL HYGIENE Resp : No cough, wheezing ,pleuritic CP ,or hemoptysis Cardio : No anginal CP, PND, orthopnea, palpitation GI : No abd.pain, n/v ,diarrhea or GI bleeding . 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 Musculoskel : No joint swelling , Derm : SACRAL DEC. ULCERS -STAGE 3 Psych : Normal affect. Ext : No swelling ,calf pain PE. Pt. is CONFUSED, awake in no distress. V.S As noted in the chart Head ,ear nose,throat and eyes : Normal. POOR ORAL HYGIENE Neck : Supple with normal carotids. Lungs: RHONCHI LT SIDE Heart : S1 & S2 normal with S4. No murmur. Abd : Soft non tender with normal bowel sounds. Neuro : Moves all ext. with no localized deficit. Ext : No edema with intact pulses.Non tender calves CONTRACTURES Derm : +VE SACRAL decubitus ulcer.-STAGE 3 LABS/RADIOLOGY: WBC 14.6/ H/H 8.6 / MYCOPLASMA IGM -VE LEGIONELLA UR. AG -VE URINE CULTURE 08/23/18 +VE YEAST BLOOD CULTURE 08/20/18 -VE X 5DAYS Objective - Vital Signs/Intake and Output Vital Signs (last 24 hours): Temp Pulse Resp BP Pulse Ox 97.8 F 99 H 20 164/85 H 100 08/26/18 15:00 08/26/18 15:00 08/26/18 15:00 08/26/18 15:00 08/26/18 15:00 Intake and Output: 08/26/18 08/27/18 18:59 06:59 Intake Total 500 Output Total 550 250 Balance -50 -250 - Medications Medications: Current Medications Acetaminophen (Tylenol 325mg Tab) 650 mg PO Q6 PRN PRN Reason: Fever >100.4 F Last Admin: 08/22/18 17:34 Dose: 650 mg Dipyridamole/Aspirin (Aggrenox 25-200 Mg) 1 ea PO BID [facility] Last Admin: 08/26/18 18:44 Dose: 1 ea Docusate Sodium (Colace) 100 mg PO HS [facility] Last Admin: 08/26/18 21:58 Dose: 100 mg Enoxaparin Sodium (Lovenox) 30 mg SC DAILY [facility] Last Admin: 08/26/18 09:51 Dose: 30 mg Cefepime HCl (Maxipime Iv 1 Gm Premix) 1 gm in 50 mls @ 100 mls/hr IVPB Q12H [facility]; Protocol Last Admin: 08/26/18 14:01 Dose: 100 mls/hr Fluconazole 100 mg/ (Miscellaneous) 50 mls @ 100 mls/hr IVPB DAILY [facility]; Protocol Last Admin: 08/26/18 09:51 Dose: 100 mls/hr Metronidazole (Flagyl) 500 mg in 100 mls @ 100 mls/hr IVPB Q12H [facility]; Protocol Last Admin: 08/26/18 11:16 Dose: 100 mls/hr Levetiracetam (Keppra) 1,000 mg PO BID [facility] Last Admin: 08/26/18 18:43 Dose: 1,000 mg - Labs Labs: 08/25/18 10:51 08/22/18 21:53 PT 15.5 SECONDS (9.7-12.2) H 08/20/18 14:16 INR 1.4 08/20/18 14:16 APTT 39 SECONDS (21-34) H 08/20/18 14:16 Assessment and Plan - Assessment and Plan (Free Text) Assessment: IMPRESSION; SEPSIS SOURCE ASPIRATION PNEUMONIA LLL CANDIDURIA. ENLARGED PROSTATE /ELEVATED PSA ? OBSTRUCTIVE UROPATHY. S/P CHRONIC Palmer INSERTION CANNOT R/O MALIGNANCY.( NO W/U DONE DUE TO DISCUSSIONS W FAMILY PER CHART ) HYPERNATREMIA. HTN SEIZURE DISORDER. CVA W LEFT-SIDED WEAKNESS. SACRAL DECUBITUS ULCER -STAGE iii. PLAN; F/U CULTURES. CONTINUE iv CEFEPIME 1 G Q 12 HOURLY DAILY 08/20/18. X 7DAYS CONTINUE IV FLAGYL 500MG IVPB [id number] FOR ANAEROBIC COVERAGE. 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 IV FLUIDS PER PMD. 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 F/U LABS THERE. WILL F/U PT WHILE IN HOSPITAL.
[2018-08-27] MEDS: metroNIDAZOLE IV 500 mg/100 ml 500 MG/100 ML BAG IVPB SCH ×2 (00:30→13:15)
[2018-08-27] MEDS: Cefepime IV 1 gm in Dextrose 1 GM/50 ML BAG IVPB SCH ×2 (02:14→14:47)
--- NOTE | 2018-08-27 06:11 | PN ---
DATE: 08/26/2018 SUBJECTIVE: Adryan Winkler is seen by orthopedist today. The patient has urinary tract infection. He also has some hip pain on the left hip and he has a fracture. The patient is not in distress. No nausea, vomiting. PHYSICAL EXAMINATION: VITAL SIGNS: Blood pressure 164/85, pulse 99, respiratory rate 20, temperature 97.8. LUNGS: Bilateral scattered rhonchi. CVS: S1, S2 regular. ABDOMEN: Soft. ASSESSMENT: 1. Obstructive uropathy, urinary tract infection. 2. Left hip fracture. 3. Seizure disorder, cerebrovascular accident. PLAN: Supportive care. Medical management. Owen Arevalo MD
[2018-08-27] MEDS: Enoxaparin 30 mg Syringe SC SCH (10:50)
[2018-08-27] MEDS: levETIRAcetam 100 mg/ml (5ml) Oral Syringe PO SCH (10:50)
[2018-08-27] MEDS: Fluconazole IV 200mg/100 ml NS 100 MG in Premixed IV 1 EA IVPB SCH (10:50)
[2018-08-27] MEDS: Aspirin-Dipyridamole 200-25 mg ER Cap PO SCH (10:50)
[2018-08-27 13:44] LABS: BASO # 0.2 K/uL (0.0-0.2); BASO % 1.1 % (0.0-2.0); EOS # 0.2 K/uL (0.0-0.7); EOS % 1.5 % (0.0-4.0); LYMPH # 4.1 K/uL (1.0-4.3); LYMPH % 26.1 % (20.0-40.0); MEAN CELL VOLUME 82.3 fL (80.0-94.0); MEAN CORPUSCULAR HEMOGLOBIN 26.8 pg (27.0-31.0); MEAN CORPUSCULAR HGB CONC 32.6 g/dL (33.0-37.0); MONO # 0.8 K/uL (0.0-0.8); MONO % 5.2 % (0.0-10.0); NEUT # 10.4 K/uL (1.8-7.0); NEUT % 66.1 % (50.0-75.0); RBC 3.36 Mil/uL (4.40-5.90); RED CELL DISTRIBUTION WIDTH 16.6 % (11.5-14.5); WHITE BLOOD COUNT 15.7 K/uL (4.8-10.8)
[2018-08-27 14:07] LABS: BLOOD UREA NITROGEN 6 mg/dL (9-20); CALCIUM 8.8 mg/dl (8.6-10.4); GFR NON-AFRICAN AMERICAN > 60
[2018-08-27] MEDS ORDERED: Potassium Chloride 20 mEq/15 ml LIQ UD PO ONE (14:30)
[2018-08-27 14:33] LABS: ALB/GLOB RATIO 0.7 (1.0-2.1); ALBUMIN 2.7 g/dL (3.5-5.0); ALT/SGPT 15 U/L (21-72); AST/SGOT 25 U/L (17-59); BILIRUBIN,DIRECT 0.5 mg/dL (0.0-0.4)
--- NOTE | 2018-08-27 15:02 | CP.PCM.PN ---
Subjective - Date & Time of Evaluation Date of Evaluation: 08/27/18 Time of Evaluation: 11:30 - Subjective Subjective: Patient seen today, comfortable, follow commands , c/o pain to the lower extremities a febrile labs ordered for today Objective - Vital Signs/Intake and Output Vital Signs (last 24 hours): Temp Pulse Resp BP Pulse Ox 97.8 F 107 H 20 114/65 97 08/27/18 07:00 08/27/18 07:00 08/27/18 07:00 08/27/18 07:00 08/27/18 07:00 Intake and Output: 08/27/18 08/27/18 06:59 18:59 Output Total 450 300 Balance -450 -300 - Medications Medications: Current Medications Acetaminophen (Tylenol 325mg Tab) 650 mg PO Q6 PRN PRN Reason: Fever >100.4 F Last Admin: 08/22/18 17:34 Dose: 650 mg Dipyridamole/Aspirin (Aggrenox 25-200 Mg) 1 ea PO BID [facility] Last Admin: 08/27/18 10:50 Dose: 1 ea Docusate Sodium (Colace) 100 mg PO HS [facility] Last Admin: 08/26/18 21:58 Dose: 100 mg Enoxaparin Sodium (Lovenox) 30 mg SC DAILY [facility] Last Admin: 08/27/18 10:50 Dose: 30 mg Cefepime HCl (Maxipime Iv 1 Gm Premix) 1 gm in 50 mls @ 100 mls/hr IVPB Q12H [facility]; Protocol Last Admin: 08/27/18 14:47 Dose: 100 mls/hr Fluconazole 100 mg/ (Miscellaneous) 50 mls @ 100 mls/hr IVPB DAILY [facility]; Protocol Last Admin: 08/27/18 10:50 Dose: 100 mls/hr Metronidazole (Flagyl) 500 mg in 100 mls @ 100 mls/hr IVPB Q12H [facility]; Protocol Last Admin: 08/27/18 13:15 Dose: 100 mls/hr Levetiracetam (Keppra) 1,000 mg PO BID [facility] Last Admin: 08/27/18 10:50 Dose: 1,000 mg - Labs Labs: 08/27/18 13:41 08/27/18 13:41 PT 15.5 SECONDS (9.7-12.2) H 08/20/18 14:16 INR 1.4 08/20/18 14:16 APTT 39 SECONDS (21-34) H 08/20/18 14:16 - Constitutional Appears: Non-toxic, No Acute Distress - Respiratory Exam Respiratory Exam: Rhonchi, NORMAL BREATHING PATTERN - Cardiovascular Exam Cardiovascular Exam: REGULAR RHYTHM, +S1, +S2 - Neurological Exam Neurological Exam: Alert, Awake Assessment and Plan - Assessment and Plan (Free Text) Assessment: A/P 73-year-old male, is admitted from [facility] for fever 101/chills, and admitted for UTI and pneumonia possible sepsis started on antibiotics c/o leg pain and x ray done and found to and found to have complex left proximal femur fracture Orthopedics called for consult and family refused any surgical intervention for fracture as per Dr. Arevalo D/W Dr. Santamaria, cleared for discharge to [facility] today with 3 antibiotics D/w Dr. Arevalo, cleared for discharge to [facility] today and Dr. Arevalo will follow the patient at [facility] Instructions sent to nursing for duration of antibiotics
[2018-08-27 15:46] VITALS: BP 135/74; PULSE 104; TEMP 98.6; O2SAT 100
--- NOTE | 2018-08-27 23:55 | CP.PCM.DIS ---
Provider - Provider Date of Admission: 08/20/18 16:53 Attending physician: Owen Arevalo MD Hospital Course - Lab Results Lab Results: Micro Results 08/20/18 16:00 Blood Blood Culture - Final NO GROWTH AFTER 5 DAYS 08/20/18 16:00 Blood Gram Stain - Final TEST NOT PERFORMED 08/20/18 13:40 Blood Blood Culture - Final NO GROWTH AFTER 5 DAYS 08/20/18 13:40 Blood Gram Stain - Final TEST NOT PERFORMED 08/23/18 17:10 Urine,Ball Urine Culture - Final Yeast Species 08/23/18 17:10 Naris MRSA Culture (Admit) - Final MRSA NOT DETECTED 08/20/18 16:35 Urine,Ball Urine Culture - Final Yeast Species Most Recent Lab Values WBC 15.7 K/uL (4.8-10.8) H 08/27/18 13:41 RBC 3.36 Mil/uL (4.40-5.90) L 08/27/18 13:41 Hgb 9.0 g/dL (12.0-18.0) L 08/27/18 13:41 Hct 27.6 % (35.0-51.0) L 08/27/18 13:41 MCV 82.3 fL (80.0-94.0) 08/27/18 13:41 MCH 26.8 pg (27.0-31.0) L 08/27/18 13:41 MCHC 32.6 g/dL (33.0-37.0) L 08/27/18 13:41 RDW 16.6 % (11.5-14.5) H 08/27/18 13:41 Plt Count 454 K/uL (130-400) H D 08/27/18 13:41 MPV 9.0 fL (7.2-11.7) 08/27/18 13:41 Neut % (Auto) 66.1 % (50.0-75.0) 08/27/18 13:41 Lymph % (Auto) 26.1 % (20.0-40.0) 08/27/18 13:41 [place] % (Auto) 5.2 % (0.0-10.0) 08/27/18 13:41 Eos % (Auto) 1.5 % (0.0-4.0) 08/27/18 13:41 Baso % (Auto) 1.1 % (0.0-2.0) 08/27/18 13:41 Neut # (Auto) 10.4 K/uL (1.8-7.0) H 08/27/18 13:41 Lymph # (Auto) 4.1 K/uL (1.0-4.3) 08/27/18 13:41 [place] # (Auto) 0.8 K/uL (0.0-0.8) 08/27/18 13:41 Eos # (Auto) 0.2 K/uL (0.0-0.7) 08/27/18 13:41 Baso # (Auto) 0.2 K/uL (0.0-0.2) 08/27/18 13:41 PT 15.5 SECONDS (9.7-12.2) H 08/20/18 14:16 INR 1.4 08/20/18 14:16 APTT 39 SECONDS (21-34) H 08/20/18 14:16 pO2 26 mm/Hg (30-55) L 08/20/18 17:55 VBG pH 7.45 (7.32-7.43) H 08/20/18 17:55 VBG pCO2 34 mmHg (40-60) L 08/20/18 17:55 VBG HCO3 23.8 mmol/L 08/20/18 17:55 VBG Total CO2 24.6 mmol/L (22-28) 08/20/18 17:55 VBG O2 Sat (Calc) 51.5 % (40-65) 08/20/18 17:55 VBG Base Excess 0.1 mmol/L (0.0-2.0) 08/20/18 17:55 VBG Potassium 1.8 mmol/L (3.6-5.2) L* 08/20/18 17:55 A-a O2 Difference 79.0 mm/Hg 08/20/18 14:22 Sodium 159.0 mmol/l (132-148) H 08/20/18 17:55 Chloride 130.0 mmol/L (98-107) H 08/20/18 17:55 Glucose 65 mg/dl (75-110) L 08/20/18 17:55 Lactate 1.3 mmol/L (0.7-2.1) 08/20/18 17:55 FiO2 21.0 % 08/20/18 17:55 Crit Value Called To Dr arevalo 08/20/18 17:55 Crit Value Called By Unruly steele 08/20/18 17:55 Crit Value Read Back Y 08/20/18 17:55 Blood Gas Notified Time 1802 08/20/18 17:55 Sodium 141 mmol/L (132-148) 08/27/18 13:41 Potassium 3.4 mmol/L (3.6-5.2) L 08/27/18 13:41 Chloride 102 mmol/L (98-107) 08/27/18 13:41 Carbon Dioxide 30 mmol/L (22-30) 08/27/18 13:41 Anion Gap 12 (10-20) 08/27/18 13:41 BUN 6 mg/dL (9-20) L 08/27/18 13:41 Creatinine 0.6 mg/dL (0.8-1.5) L 08/27/18 13:41 Est GFR ( Amer) > 60 08/27/18 13:41 Est GFR (Non-Af Amer) > 60 08/27/18 13:41 POC Glucose (mg/dL) 114 mg/dL (65-110) H 08/27/18 16:44 Random Glucose 96 mg/dL (75-110) 08/27/18 13:41 Calcium 8.8 mg/dl (8.6-10.4) 08/27/18 13:41 Phosphorus 2.2 mg/dL (2.5-4.5) L 08/21/18 10:20 Magnesium 1.6 mg/dL (1.6-2.3) 08/27/18 13:41 Total Bilirubin 0.6 mg/dL (0.2-1.3) 08/27/18 13:41 Direct Bilirubin 0.5 mg/dL (0.0-0.4) H 08/27/18 13:41 AST 25 U/L (17-59) 08/27/18 13:41 ALT 15 U/L (21-72) L D 08/27/18 13:41 Alkaline Phosphatase 201 U/L (38-126) H D 08/27/18 13:41 Total Protein 6.5 g/dL (6.3-8.3) 08/27/18 13:41 Albumin 2.7 g/dL (3.5-5.0) L 08/27/18 13:41 Globulin 3.8 gm/dL (2.2-3.9) 08/27/18 13:41 Albumin/Globulin Ratio 0.7 (1.0-2.1) L 08/27/18 13:41 Venous Blood Potassium 1.8 mmol/L (3.6-5.2) L* 08/20/18 17:55 Urine Color Yellow (YELLOW) 08/20/18 16:35 Urine Clarity Hazy (Clear) 08/20/18 16:35 Urine pH 5.0 (5.0-8.0) 08/20/18 16:35 Ur Specific [place] 1.023 (1.003-1.030) 08/20/18 16:35 Urine Protein 2+ mg/dL (NEGATIVE) H 08/20/18 16:35 Urine Glucose (UA) Normal mg/dL (Normal) 08/20/18 16:35 Urine Ketones Trace mg/dL (NEGATIVE) 08/20/18 16:35 Urine Blood 3+ (NEGATIVE) H 08/20/18 16:35 Urine Nitrate Negative (NEGATIVE) 08/20/18 16:35 Urine Bilirubin Negative (NEGATIVE) 08/20/18 16:35 Urine Urobilinogen Normal mg/dL (0.2-1.0) 08/20/18 16:35 Ur Leukocyte Esterase 3+ Hannah/uL (Negative) H 08/20/18 16:35 Urine WBC (Auto) 181 /hpf (0-5) H 08/20/18 16:35 Urine RBC (Auto) 231 /hpf (0-3) H 08/20/18 16:35 Ur Squamous Epith Cells < 1 /hpf (0-5) 08/20/18 16:35 Calcium Oxalate Crystal Mod /hpf (<OCC) H 08/20/18 16:35 Urine Bacteria Occ (<OCC) H 08/20/18 16:35 Urine Yeast (Budding) Many /hpf (NEGATIVE) H 08/20/18 16:35 Ur L.pneumophila Ag Negative (NEGATIVE) 08/23/18 17:10 Mycoplasma pneumon IgM Negative (NEGATIVE) 08/25/18 10:51 Discharge Exam - Head Exam Head Exam: ATRAUMATIC, NORMAL INSPECTION, NORMOCEPHALIC Discharge Plan - Discharge Medications Prescriptions: Fluconazole IV 100mg/50 ml NS [Diflucan IV 100 mg/50 ml NS] 100 mg IV DAILY #7 ml metroNIDAZOLE 500mg/100ml NS [Flagyl 500MG/100ML NS] 500 mg IVPB Q12H 7 Days bag Saccharomyces Boulardii [Florastor] 1 cap PO DAILY 7 Days capsule Cefepime [Maxipime] 1 gm IV Q12H 7 Days vial - Follow Up Plan Condition: FAIR Disposition: REHAB FACILITY/REHAB UNIT Instructions: Hypokalemia (DC), Pneumonia, Adult (DC), Femur Fracture Additional Instructions: PLACE UNDER THE SERVICE OF DR AREVALO AT [facility] ---- Please call Dr. Arevalo upon patient arrival to [facility] facility continue cefepime 1 gm q 12 hr x 7 days,diflucan IV 100 mg q daily x 7 days , and flagyl 500 mg IV q 12 hr x 7 days Please do cbc, bmp, liver profile sat continue all other medication as per Med. rec. wound care PLEASE CHANGE MIDLINE PLEASE CHANGE BALL CATH MONTHLY- 09/21/[address] AREVALO FOR FURTHER ORDER " PLEASE RESTART ARICEPT AFTER THE COMPLETION OF DIFLUCAN " donot give diflucan and aricept together - QT prolongation Referrals: Linda Travis MD [Staff Provider] - Mariaelena Santamaria MD [Staff Provider] -
== END 2018-08-27 18:01 | DRG 871 ==
LOC: C.ER 13:01 → C.9E 16:53 → C.5S 18:28
PROVIDERS: ADMIT Internal Medicine; ATTEND Internal Medicine
DX: A41.9 Sepsis, unspecified organism (principal); J69.0 Pneumonitis due to inhalation of food and vomit; B37.49 Other urogenital candidiasis; L89.153 Pressure ulcer of sacral region, stage 3; E87.0 Hyperosmolality and hypernatremia; I69.354 Hemiplegia and hemiparesis following cerebral infarction affecting left non-dominant side; M84.452A Pathological fracture, left femur, initial encounter for fracture; R47.01 Aphasia; E87.6 Hypokalemia; C61 Malignant neoplasm of prostate; E86.0 Dehydration; G20 Parkinson's disease; G40.909 Epilepsy, unspecified, not intractable, without status epilepticus; I10 Essential (primary) hypertension; M85.80 Other specified disorders of bone density and structure, unspecified site; N13.9 Obstructive and reflux uropathy, unspecified; N40.0 Benign prostatic hyperplasia without lower urinary tract symptoms; H54.7 Unspecified visual loss; Z74.01 Bed confinement status; Z51.5 Encounter for palliative care; Z66 Do not resuscitate